=== PATIENT | female | born 1975 | race Caucasian/White ===

== ENCOUNTER → 2017-03-09 | Outpatient (CLI) | payer OTHER ==
--- NOTE | 2017-03-09 09:54 | REP ---
Clinical: Pain. Technique: AP, lateral, bilateral oblique views of the left foot. Findings: Examination is relatively normal for age. No overt osteoarthritic degenerative changes are appreciated. No acute fracture or dislocation. A prominent type II os naviculare is identified not to be confused with acute fracture. No significant soft tissue swelling. No subcutaneous emphysema or radiodense foreign body. Impression: Age-appropriate left foot radiographs. As above. Signed by Eren Beltran MD 03/09/2017 09:46 A
== END ==
LOC: M WUC 08:52
PROVIDERS: ATTEND Physician Assistant
DX: M79.672 Pain in left foot (principal)

== ENCOUNTER → 2017-03-26 | Outpatient (REF) | payer OTHER ==
[2017-03-26 17:40] LABS: CHLORIDE LEVEL 106 MEQ/L (98-107); POTASSIUM SERUM 4.8 MEQ/L (3.5-5.1); SODIUM LEVEL 140 MEQ/L (136-145)
[2017-03-26 18:12] LABS: ALKALINE PHOSPHATASE 86 U/L (45-117); ALT/SGPT 15 U/L (12-78); ANION GAP 5 MEQ/L (8-16); AST/SGOT 11 U/L (15-37); BLOOD UREA NITROGEN 8 MG/DL (7-18); CALCIUM LEVEL 8.3 MG/DL (8.5-10.1); CARBON DIOXIDE LEVEL 29 MEQ/L (21-32); GLOMERULAR FILTRATION RATE > 60.0 (>58); GLUCOSE, FASTING 91 MG/DL (70-105)
[2017-03-26 18:13] LABS: ALBUMIN 3.5 GM/DL (3.2-5.2); ALBUMIN/GLOBULIN RATIO 1.06 (1.00-1.93); BILIRUBIN,TOTAL 0.4 MG/DL (0.2-1.0); CHOLESTEROL LEVEL 186 MG/DL (<200); FREE T4 0.94 NG/DL (0.76-1.46); TOTAL PROTEIN 6.8 GM/DL (6.4-8.2); TRIGLYCERIDES LEVEL 148 MG/DL (<150)
[2017-03-26 18:31] LABS: BASO # 0.1 10^3/uL (0.0-0.2); BASO % 1.3 % (0.0-1.0); EOS # 0.1 10^3/uL (0.0-0.50); EOS % 2.1 % (0.0-3.0); IMMATURE GRANULOCYTE % 0.2 % (0-0); LYMPH # 1.6 10^3/uL (1.5-4.5); LYMPH % 31.5 % (24.0-44.0); MEAN CORPUSCULAR HEMOGLOBIN 24.3 pg (27.0-33.0); MEAN CORPUSCULAR HGB CONC 31.5 g/dl (32.0-36.5); MEAN CORPUSCULAR VOLUME 77.2 fl (80.0-96.0); MONO # 0.5 10^3/uL (0.0-0.8); MONO % 8.8 % (0.0-5.0); NEUTROPHILS # 2.9 10^3/uL (1.8-7.7); NEUTROPHILS % 56.1 % (36.0-66.0); PLATELET COUNT, AUTOMATED 198 10^3/uL (150-450); RED CELL DISTRIBUTION WIDTH 15.1 % (11.5-14.5); WHITE BLOOD COUNT 5.2 10^3/uL (4.0-10.0)
== END ==
LOC: M SFHCSACK 10:04
PROVIDERS: ATTEND Physician Assistant
DX: E78.5 Hyperlipidemia, unspecified (principal); F32.9 Major depressive disorder, single episode, unspecified; Z13.29 Encounter for screening for other suspected endocrine disorder; Z13.21 Encounter for screening for nutritional disorder

== ENCOUNTER → 2017-10-26 | Outpatient (REF) | payer OTHER ==
[2017-10-26 11:45] LABS: BASO # 0.1 10^3/uL (0.0-0.2); EOS # 0.2 10^3/uL (0.0-0.50); HEMATOCRIT 41.9 % (36.0-47.0); HEMOGLOBIN 13.6 g/dl (12.0-15.5); IMMATURE GRANULOCYTE % 0.1 % (0-3.0); LYMPH # 1.6 10^3/uL (1.5-4.5); LYMPH % 22.1 % (24.0-44.0); MEAN CORPUSCULAR HGB CONC 32.5 g/dl (32.0-36.5); MEAN CORPUSCULAR VOLUME 77.2 fl (80.0-96.0); MONO # 0.6 10^3/uL (0.0-0.8); MONO % 8.2 % (0.0-5.0); NEUTROPHILS # 4.9 10^3/uL (1.8-7.7); NEUTROPHILS % 66.6 % (36.0-66.0); PLATELET COUNT, AUTOMATED 184 10^3/uL (150-450); RED BLOOD COUNT 5.43 10^6/uL (4.00-5.40); RED CELL DISTRIBUTION WIDTH 14.8 % (11.5-14.5); WHITE BLOOD COUNT 7.4 10^3/uL (4.0-10.0)
[2017-10-26 12:07] LABS: TOTAL 25(OH) VITAMIN D 22.4 NG/ML (30.0-100.0)
[2017-10-26 12:13] LABS: ALBUMIN 3.6 GM/DL (3.2-5.2); ALBUMIN/GLOBULIN RATIO 1.16 (1.00-1.93); ALKALINE PHOSPHATASE 95 U/L (45-117); ALT/SGPT 14 U/L (12-78); ANION GAP 8 MEQ/L (8-16); AST/SGOT 13 U/L (7-37); BILIRUBIN,TOTAL 0.6 MG/DL (0.2-1.0); BLOOD UREA NITROGEN 9 MG/DL (7-18); CALCIUM LEVEL 8.3 MG/DL (8.5-10.1); CARBON DIOXIDE LEVEL 27 MEQ/L (21-32); CHLORIDE LEVEL 105 MEQ/L (98-107); CHOLESTEROL LEVEL 199 MG/DL (<200); CHOLESTEROL RISK RATIO 4.738 (<5); CREATININE FOR GFR 0.82 MG/DL (0.55-1.30); FREE T4 1.01 NG/DL (0.76-1.46); GLOMERULAR FILTRATION RATE > 60.0 (>58); GLUCOSE, FASTING 102 MG/DL (70-100); HDL CHOLESTEROL 42 MG/DL (>40); LDL CHOLESTEROL 116.4 MG/DL (<100); NON-HDL-C 157 MG/DL; POTASSIUM SERUM 4.1 MEQ/L (3.5-5.1); SODIUM LEVEL 140 MEQ/L (136-145); TOTAL PROTEIN 6.7 GM/DL (6.4-8.2); TRIGLYCERIDES LEVEL 203 MG/DL (<150)
== END ==
LOC: M SFHCPLAZ 08:27
DX: F32.9 Major depressive disorder, single episode, unspecified (principal); E78.5 Hyperlipidemia, unspecified; Z13.29 Encounter for screening for other suspected endocrine disorder; Z13.21 Encounter for screening for nutritional disorder
CPT/HCPCS: 84443

== ENCOUNTER → 2018-01-28 | Outpatient (REF) | payer OTHER ==
[2018-01-28 11:20] LABS: BASO # 0.1 10^3/uL (0.0-0.2); BASO % 1.1 % (0.0-1.0); EOS # 0.2 10^3/uL (0.0-0.50); EOS % 2.9 % (0.0-3.0); HEMATOCRIT 42.7 % (36.0-47.0); HEMOGLOBIN 13.8 g/dl (12.0-15.5); IMMATURE GRANULOCYTE % 0.2 % (0-3.0); LYMPH # 1.9 10^3/uL (1.5-4.5); LYMPH % 30.6 % (24.0-44.0); MEAN CORPUSCULAR HEMOGLOBIN 24.6 pg (27.0-33.0); MEAN CORPUSCULAR HGB CONC 32.3 g/dl (32.0-36.5); MEAN CORPUSCULAR VOLUME 76.3 fl (80.0-96.0); MONO # 0.6 10^3/uL (0.0-0.8); MONO % 8.8 % (0.0-5.0); NEUTROPHILS # 3.5 10^3/uL (1.8-7.7); NEUTROPHILS % 56.4 % (36.0-66.0); PLATELET COUNT, AUTOMATED 187 10^3/uL (150-450); RED CELL DISTRIBUTION WIDTH 14.9 % (11.5-14.5); WHITE BLOOD COUNT 6.2 10^3/uL (4.0-10.0)
[2018-01-28 11:37] LABS: ALBUMIN 3.4 GM/DL (3.2-5.2); ALBUMIN/GLOBULIN RATIO 1.06 (1.00-1.93); ALKALINE PHOSPHATASE 86 U/L (45-117); ALT/SGPT 12 U/L (12-78); ANION GAP 4 MEQ/L (8-16); AST/SGOT 8 U/L (7-37); BILIRUBIN,TOTAL 0.5 MG/DL (0.2-1.0); BLOOD UREA NITROGEN 12 MG/DL (7-18); CALCIUM LEVEL 8.3 MG/DL (8.5-10.1); CARBON DIOXIDE LEVEL 29 MEQ/L (21-32); CHLORIDE LEVEL 107 MEQ/L (98-107); CREATININE FOR GFR 0.84 MG/DL (0.55-1.30); GLOMERULAR FILTRATION RATE > 60.0 (>58); GLUCOSE, FASTING 95 MG/DL (70-100); POTASSIUM SERUM 4.1 MEQ/L (3.5-5.1); SODIUM LEVEL 140 MEQ/L (136-145); TOTAL PROTEIN 6.6 GM/DL (6.4-8.2)
[2018-01-28 12:05] LABS: ESTIMATED AVERAGE GLUCOSE 111 MG/DL (60-110); HEMOGLOBIN A1c 5.5 %
== END ==
LOC: M SFHCSACK 08:30
DX: E55.9 Vitamin D deficiency, unspecified (principal); R73.09 Other abnormal glucose
CPT/HCPCS: 80053

== ENCOUNTER → 2018-09-02 | Outpatient (REF) | payer OTHER ==
[2018-09-02 15:10] LABS: BASO # 0.1 10^3/uL (0.0-0.2); BASO % 1.3 % (0.0-1.0); EOS # 0.1 10^3/uL (0.0-0.50); EOS % 2.5 % (0.0-3.0); HEMATOCRIT 42.8 % (36.0-47.0); LYMPH # 1.4 10^3/uL (1.5-4.5); LYMPH % 25.5 % (24.0-44.0); MEAN CORPUSCULAR HEMOGLOBIN 25.4 pg (27.0-33.0); MEAN CORPUSCULAR HGB CONC 32.7 g/dl (32.0-36.5); MEAN CORPUSCULAR VOLUME 77.5 fl (80.0-96.0); MONO # 0.5 10^3/uL (0.0-0.8); MONO % 9.4 % (0.0-5.0); NEUTROPHILS # 3.4 10^3/uL (1.8-7.7); NEUTROPHILS % 61.1 % (36.0-66.0); PLATELET COUNT, AUTOMATED 207 10^3/uL (150-450); RED BLOOD COUNT 5.52 10^6/uL (4.00-5.40); WHITE BLOOD COUNT 5.5 10^3/uL (4.0-10.0)
[2018-09-02 15:27] LABS: ALBUMIN 3.6 GM/DL (3.2-5.2); ALT/SGPT 18 U/L (12-78); BILIRUBIN,TOTAL 0.5 MG/DL (0.2-1.0); BLOOD UREA NITROGEN 11 MG/DL (7-18); CALCIUM LEVEL 8.7 MG/DL (8.5-10.1); CARBON DIOXIDE LEVEL 30 MEQ/L (21-32); CHLORIDE LEVEL 104 MEQ/L (98-107); CHOLESTEROL LEVEL 214 MG/DL (<200); CHOLESTEROL RISK RATIO 4.196 (<5); CREATININE FOR GFR 0.74 MG/DL (0.55-1.30); FERRITIN 14 NG/ML (8-252); FREE T4 1.02 NG/DL (0.76-1.46); GLOMERULAR FILTRATION RATE > 60.0 (>58); GLUCOSE, FASTING 91 MG/DL (70-100); HDL CHOLESTEROL 51 MG/DL (>40); IRON (FE) 69 UG/DL (50-170); LDL CHOLESTEROL 130 MG/DL (<100); NON-HDL-C 163 MG/DL; POTASSIUM SERUM 4.5 MEQ/L (3.5-5.1); SODIUM LEVEL 140 MEQ/L (136-145); TOTAL 25(OH) VITAMIN D 21.8 NG/ML (30.0-100.0); TOTAL IRON BINDING CAPACITY 287 UG/DL (250-450); TOTAL PROTEIN 6.9 GM/DL (6.4-8.2); TRIGLYCERIDES LEVEL 165 MG/DL (<150)
[2018-09-02 15:44] LABS: HEMOGLOBIN A1c 5.7 %
== END ==
LOC: M SFHCSACK 08:05
PROVIDERS: ATTEND Physician Assistant
DX: D64.9 Anemia, unspecified (principal); E78.5 Hyperlipidemia, unspecified; F32.9 Major depressive disorder, single episode, unspecified; R73.09 Other abnormal glucose; E55.9 Vitamin D deficiency, unspecified

== ENCOUNTER → 2018-10-25 | Outpatient (CLI) | payer OTHER ==
--- NOTE | 2018-10-25 12:03 | REPMRS ---
Patient History The patient states she had a clinical breast exam in 10/2018. No known family history of cancer. No Hormone Replacement Therapy Digital Woman Screen Mammo: October 25, 2018 - Exam #: [id number] Bilateral CC and MLO view(s) were taken. Technologist: Suzette Moise, Technologist Prior study comparison: March 04, 2015, bilateral digital mammo screening bilat, performed at [facility]. FINDINGS: The breast tissue is heterogeneously dense. This may lower the sensitivity of mammography. There has been no change in the appearance of the mammogram from the prior studies. There is a moderate amount of residual fibroglandular tissue which is fairly symmetric. There is no interval development of dominant mass, areas of architectural distortion, or clustered microcalcification typical of malignancy. Assessment: BI-RADS/ACR category 1 mammogram. Negative Mammogram. Recommendation Routine screening mammogram in 1 year (for women over age 40). This mammogram was interpreted with the aid of an FDA-approved computer-aided dectection system. Electronically Signed By: Kyle Calderon MD 10/25/18 7901
== END ==
LOC: M WHC 09:16
PROVIDERS: ATTEND Nurse Practitioner Women's Health
DX: Z12.31 Encounter for screening mammogram for malignant neoplasm of breast (principal)
CPT/HCPCS: 77067; G0123; G0463

== ENCOUNTER → 2018-10-25 | Outpatient (REF) | payer OTHER ==
[2018-10-30 14:11] LABS: HPV HYBRID CAPTURE II Negative (Negative)
== END ==
LOC: M SFHCWAGY 09:25
PROVIDERS: ATTEND Nurse Practitioner Women's Health
DX: Z12.4 Encounter for screening for malignant neoplasm of cervix (principal); Z11.51 Encounter for screening for human papillomavirus (HPV)

== ENCOUNTER → 2019-02-19 | Outpatient (REF) | payer OTHER ==
[2019-02-19 14:13] LABS: BASO # 0.1 10^3/uL (0.0-0.2); BASO % 1.3 % (0.0-1.0); EOS # 0.2 10^3/uL (0.0-0.50); EOS % 2.4 % (0.0-3.0); HEMATOCRIT 41.7 % (36.0-47.0); HEMOGLOBIN 13.5 g/dl (12.0-15.5); LYMPH # 1.6 10^3/uL (1.5-4.5); LYMPH % 22.5 % (24.0-44.0); MEAN CORPUSCULAR HEMOGLOBIN 24.9 pg (27.0-33.0); MEAN CORPUSCULAR HGB CONC 32.4 g/dl (32.0-36.5); MEAN CORPUSCULAR VOLUME 76.9 fl (80.0-96.0); MONO # 0.6 10^3/uL (0.0-0.8); MONO % 8.5 % (0.0-5.0); NEUTROPHILS # 4.5 10^3/uL (1.8-7.7); NEUTROPHILS % 65.2 % (36.0-66.0); PLATELET COUNT, AUTOMATED 233 10^3/uL (150-450); RED BLOOD COUNT 5.42 10^6/uL (4.00-5.40); WHITE BLOOD COUNT 6.9 10^3/uL (4.0-10.0)
[2019-02-19 14:17] LABS: ALBUMIN 3.2 GM/DL (3.2-5.2); ALT/SGPT 12 U/L (12-78); BILIRUBIN,TOTAL 0.5 MG/DL (0.2-1.0); BLOOD UREA NITROGEN 7 MG/DL (7-18); CALCIUM LEVEL 8.3 MG/DL (8.5-10.1); CARBON DIOXIDE LEVEL 27 MEQ/L (21-32); CHLORIDE LEVEL 108 MEQ/L (98-107); CHOLESTEROL LEVEL 212 MG/DL (<200); GLOMERULAR FILTRATION RATE > 60.0 (>58); GLUCOSE, FASTING 92 MG/DL (70-100); HDL CHOLESTEROL 41 MG/DL (>40); LDL CHOLESTEROL 139 MG/DL (<100); NON-HDL-C 171 MG/DL; POTASSIUM SERUM 3.8 MEQ/L (3.5-5.1); SODIUM LEVEL 138 MEQ/L (136-145); TOTAL PROTEIN 6.3 GM/DL (6.4-8.2); TRIGLYCERIDES LEVEL 159 MG/DL (<150)
[2019-02-19 14:25] LABS: TOTAL 25(OH) VITAMIN D 40.9 NG/ML (30.0-100.0)
== END ==
LOC: M SFHCSACK 08:26
PROVIDERS: ATTEND Physician Assistant
DX: E78.5 Hyperlipidemia, unspecified (principal); E55.9 Vitamin D deficiency, unspecified
CPT/HCPCS: 36415; 80053; 80061; 82306; 85025; G0463

== ENCOUNTER → 2019-03-05 | Outpatient (REF) | payer OTHER | LOC: M SFHCSACK 14:35 | PROVIDERS: ATTEND Physician Assistant | DX: R30.0 Dysuria (principal) | CPT/HCPCS: 81002; 87086; G0463 ==

== ENCOUNTER → 2019-08-14 | Outpatient (CLI) | payer OTHER ==
[2019-08-14 12:27] LABS: BASO # 0.1 10^3/uL (0.0-0.2); BASO % 1.5 % (0.0-1.0); EOS # 0.1 10^3/uL (0.0-0.5); EOS % 2.1 % (0.0-3.0); HEMATOCRIT 45.5 % (36.0-47.0); HEMOGLOBIN 14.2 g/dl (12.0-15.5); LYMPH % 29.6 % (24.0-44.0); MEAN CORPUSCULAR HEMOGLOBIN 24.5 pg (27.0-33.0); MEAN CORPUSCULAR HGB CONC 31.2 g/dl (32.0-36.5); MEAN CORPUSCULAR VOLUME 78.6 fl (80.0-96.0); MONO # 0.6 10^3/uL (0.0-0.8); MONO % 9.7 % (0.0-5.0); NEUTROPHILS # 3.7 10^3/uL (1.5-8.5); NEUTROPHILS % 56.8 % (36.0-66.0); PLATELET COUNT, AUTOMATED 211 10^3/uL (150-450); RED BLOOD COUNT 5.79 10^6/uL (4.00-5.40); WHITE BLOOD COUNT 6.6 10^3/uL (4.0-10.0)
[2019-08-14 12:52] LABS: ALBUMIN 3.6 GM/DL (3.2-5.2); ALT/SGPT 17 U/L (12-78); BILIRUBIN,TOTAL 0.4 MG/DL (0.2-1.0); BLOOD UREA NITROGEN 12 MG/DL (7-18); CALCIUM LEVEL 8.7 MG/DL (8.5-10.1); CARBON DIOXIDE LEVEL 30 MEQ/L (21-32); CHLORIDE LEVEL 105 MEQ/L (98-107); CHOLESTEROL LEVEL 180 MG/DL (<200); CHOLESTEROL RISK RATIO 4.186 (<5); CREATININE FOR GFR 0.88 MG/DL (0.55-1.30); GLOMERULAR FILTRATION RATE > 60.0 (>58); GLUCOSE, FASTING 103 MG/DL (70-100); HDL CHOLESTEROL 43 MG/DL (>40); LDL CHOLESTEROL 108 MG/DL (<100); NON-HDL-C 137 MG/DL; POTASSIUM SERUM 4.2 MEQ/L (3.5-5.1); SODIUM LEVEL 138 MEQ/L (136-145); TOTAL 25(OH) VITAMIN D 40.4 NG/ML (30.0-100.0); TOTAL PROTEIN 6.8 GM/DL (6.4-8.2); TRIGLYCERIDES LEVEL 146 MG/DL (<150)
== END ==
LOC: M PLALAB 08:47
PROVIDERS: ATTEND Physician Assistant
DX: E78.5 Hyperlipidemia, unspecified (principal); E55.9 Vitamin D deficiency, unspecified; F32.9 Major depressive disorder, single episode, unspecified

== ENCOUNTER → 2020-02-06 | Outpatient (CLI) | payer OTHER ==
--- NOTE | 2020-03-19 08:41 | REP ---
RIGHT CLAVICLE SERIES HISTORY: Lump over right sternoclavicular joint. TECHNIQUE: Two views of the right clavicle are performed. FINDINGS: There is no acute fracture or dislocation. Osseous structures are well aligned. No definite abnormalities are seen at the sternoclavicular or acromioclavicular joints. IMPRESSION: Unremarkable radiographs right clavicle. MTDD
== END ==
LOC: M RAD 09:15
PROVIDERS: ATTEND Plastic Surgery Surgery of the Hand
DX: R22.31 Localized swelling, mass and lump, right upper limb (principal)

== ENCOUNTER → 2020-02-12 | Outpatient (CLI) | payer OTHER ==
[~2020-02-12] MED LIST: GASTROGRAFIN SOLUTION 30ML (Q9963) As Ordered ONE; ISOVUE-370 76% 100ML VIAL As Ordered ONE
--- NOTE | 2020-03-19 08:42 | REP ---
CT ABDOMEN AND PELVIS WITHOUT CONTRAST FOLLOWED BY WITH CONTRAST COMPARISON: There are no prior examinations for comparison. CONTRAST UTILIZED: 100 mL Isovue-370. Oral bowel preparatory contrast was also administered prior to the exam. In the right lung base, there is a 6-mm sized nodule. There are no pleural or pericardial effusions. The precontrast enhanced portion of the exam shows hepatic and splenic densities to be within normal limits. There is no nephrolith or cholelith. There is no proximal ureterolith. The contrast enhanced portion of the exam shows the liver, gallbladder, spleen, adrenal glands, pancreas, and kidneys to be within normal limits. The abdominal aorta and paraaortic regions are within normal limits. The bowel loops and their mesenteries are within normal limits. There is no evidence of a mass or adenopathy. There is no free fluid or free air. At the level of the umbilicus along the anterior abdominal wall, there is slight irregularity and discontinuity of the abdominal wall at that level with mm in size openings and through which a small amount of mesentery protrudes. Bone window technique throughout the exam shows spinal degenerative changes. IMPRESSION: * There is evidence of tiny rents along the anterior abdominal wall at the level of the umbilicus as described above. * There is a nodule in the right lung lower lobe measuring 6-mm. According to the revised Fleischner Society Criteria, diagnostic CT scan of chest with contrast is recommended for the initial follow-up exam. * Other findings as described above. MTDD
== END ==
LOC: M RAD 12:28
PROVIDERS: ATTEND Plastic Surgery Surgery of the Hand
DX: M54.07 Panniculitis affecting regions of neck and back, lumbosacral region (principal); K42.9 Umbilical hernia without obstruction or gangrene; R91.1 Solitary pulmonary nodule
CPT/HCPCS: 74178; Q9963; Q9967

== ENCOUNTER → 2020-03-25 | Outpatient (CLI) | payer OTHER ==
[~2020-03-25] MED LIST changes: -GASTROGRAFIN SOLUTION 30ML (Q9963) As Ordered ONE
--- NOTE | 2020-03-31 10:23 | REP ---
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 COMPARISON: CT study abdomen 02/12/2020, showed a small nodule incompletely visualized in the right lower lobe of the lung. CT study recommended for further evaluation. No comparison chest CT. CT CONTRAST DOSE: 75 mL of intravenous Isovue-370. CT FINDINGS: Digital preliminary lean manufacturing engineer radiograph is unremarkable. Lung window settings confirm the presence of a 6-mm pleural-based nodule in the posterior aspect of the right lower lobe, as seen on the recent CT abdomen. No other pulmonary nodule is appreciated. The lung lindsey are otherwise clear. No hilar or mediastinal mass or adenopathy is seen. No pleural or pericardial effusion. The adrenal glands are normal. There is minimal diffuse fatty infiltration of the liver. No extrathoracic mass or adenopathy is appreciated. No bony destructive lesion seen. IMPRESSION: A 6-mm noncalcified pulmonary nodule right lower lobe noted posteriorly as seen on the abdomen CT study done 02/12/2020. If this patient is considered to have risk factors for lung malignancy, a six month follow-up chest CT study should be considered to document stability over time. Lung-RADS Category 3 finding. MTDD
== END ==
LOC: M RAD 09:31
PROVIDERS: ATTEND Plastic Surgery Surgery of the Hand
DX: D38.6 Neoplasm of uncertain behavior of respiratory organ, unspecified (principal); R91.1 Solitary pulmonary nodule
CPT/HCPCS: 71260; Q9967

== ENCOUNTER → 2020-07-26 | Outpatient (CLI) | payer OTHER ==
[~2020-07-26] MED LIST changes: +ADDE20CA3 PO; +CHAN1PAK13 PO; -ISOVUE-370 76% 100ML VIAL As Ordered ONE; +SIMV20TA22 PO
[2020-07-26 10:14] LABS: BASO # 0.1 10^3/uL (0.0-0.2); BASO % 1.1 % (0.0-1.0); EOS # 0.2 10^3/uL (0.0-0.5); EOS % 2.5 % (0.0-3.0); HEMATOCRIT 44.5 % (36.0-47.0); HEMOGLOBIN 14.3 g/dl (12.0-15.5); LYMPH # 1.9 10^3/uL (1.5-5.0); LYMPH % 26.4 % (24.0-44.0); MEAN CORPUSCULAR HEMOGLOBIN 25.2 pg (27.0-33.0); MEAN CORPUSCULAR HGB CONC 32.1 g/dl (32.0-36.5); MEAN CORPUSCULAR VOLUME 78.5 fl (80.0-96.0); MONO # 0.6 10^3/uL (0.0-0.8); MONO % 8.1 % (0.0-5.0); NEUTROPHILS # 4.4 10^3/uL (1.5-8.5); NEUTROPHILS % 61.8 % (36.0-66.0); PLATELET COUNT, AUTOMATED 222 10^3/uL (150-450); RED BLOOD COUNT 5.67 10^6/uL (4.00-5.40); WHITE BLOOD COUNT 7.2 10^3/uL (4.0-10.0)
[2020-07-26 10:41] LABS: ALBUMIN 3.5 GM/DL (3.2-5.2); ALT/SGPT 17 U/L (12-78); BILIRUBIN,TOTAL 0.6 MG/DL (0.2-1.0); BLOOD UREA NITROGEN 12 MG/DL (7-18); CALCIUM LEVEL 8.6 MG/DL (8.5-10.1); CARBON DIOXIDE LEVEL 28 MEQ/L (21-32); CHLORIDE LEVEL 104 MEQ/L (98-107); CREATININE FOR GFR 0.75 MG/DL (0.55-1.30); GLOMERULAR FILTRATION RATE > 60.0 (>58); GLUCOSE, FASTING 100 MG/DL (70-100); POTASSIUM SERUM 4.1 MEQ/L (3.5-5.1); SODIUM LEVEL 138 MEQ/L (136-145); TOTAL PROTEIN 6.6 GM/DL (6.4-8.2)
[2020-07-26 11:29] LABS: HEMOGLOBIN A1c 5.5 %
== END ==
LOC: M WUC 08:15
PROVIDERS: ATTEND Physician Assistant
DX: Z01.818 Encounter for other preprocedural examination (principal)

== ENCOUNTER → 2020-07-29 | Outpatient (CLI) | payer OTHER | LOC: M LABSMTC 14:11 | PROVIDERS: ATTEND Anesthesiology | DX: Z01.812 Encounter for preprocedural laboratory examination (principal); Z20.822 Contact with and (suspected) exposure to COVID-19 ==

== ENCOUNTER 2020-08-03 06:18 | Observation (INO) | payer OTHER, SELFPAY ==
[~2020-08-03] VITALS: Ht 167.6 cm; Wt 84.1 kg
[2020-08-03] VITALS (7 sets, daily range): BP systolic 126–143; BP diastolic 76–83
[2020-08-03] MEDS ORDERED: BACITRACIN PWD 50,000 UNITS VIAL As Ordered ONE (07:13)
[2020-08-03] MEDS ORDERED: BUPIVACAINE LIPOSOME/PF 1.3% 20ML VIAL (13.3MG/ML)(EXPAREL)(C9290 PER1MG) As Ordered ONE (07:13)
[2020-08-03] MEDS ORDERED: ceFAZolin SOD 2 GM in IV 1 EA IV ONE (07:15)
[2020-08-03] MEDS ORDERED: HEPARIN SOD (PORCINE) 5000UNITS/ML 1ML VIAL/SYRINGE SQ ONE (07:15)
[2020-08-03] MEDS ORDERED: fentaNYL 100 MCG/2 ML INJECTION (J3010) As Ordered ONE (07:18)
[2020-08-03] MEDS ORDERED: LIDOCAINE 2% 100MG/5ML SDV (FOR ANES.) As Ordered ONE (07:18)
[2020-08-03] MEDS ORDERED: propofoL 200 MG/20 ML VIAL As Ordered ONE (07:18)
[2020-08-03] MEDS ORDERED: ONDANSETRON 4MG/2ML VIAL As Ordered ONE (07:18)
[2020-08-03] MEDS ORDERED: METOCLOPRAMIDE INJ 10MG/2ML VIAL (J2765 PER 1) As Ordered ONE (07:18)
[2020-08-03] MEDS ORDERED: MIDAZOLAM INJ 2MG/2ML VIAL (J2250 PER 1MG) As Ordered ONE (07:19)
[2020-08-03] MEDS ORDERED: ROCURONIUM BROMIDE 50 MG/5 ML VIAL As Ordered ONE (07:21)
[2020-08-03] MEDS ORDERED: HYDROmorphone HCL 2 MG/ML 1ML VIAL (J1170) As Ordered ONE (08:13)
[2020-08-03] MEDS ORDERED: THROMBIN SOLN 20,000 UNITS KIT As Ordered ONE (08:50)
[2020-08-03] MEDS ORDERED: dexameTHASONE 4 MG/ML 1ML VIAL (J1100 PER 1MG) As Ordered ONE (10:40)
[2020-08-03] MEDS ORDERED: ACETAMINOPHEN 1000MG 100ML IV BTL (OFIRMEV) (J0131 PER 10MG) As Ordered ONE (10:40)
[2020-08-03] MEDS ORDERED: LABETALOL 100MG/20ML VIAL As Ordered ONE (10:40)
[2020-08-03] MEDS ORDERED: MORPHINE 10 MG/ML 1ML VIAL (J2270) As Ordered ONE (10:54)
[2020-08-03] MEDS: MORPHINE 2 MG/ML 1ML VIAL (J2270) IV PRN ×3 (10:57→11:22)
--- NOTE | 2020-08-03 11:21 | POST-OPPD ---
Postoperative Procedure Note Date Of Procedure: Aug 03, 2020 PREOPERATIVE DIAGNOSIS: Panniculitis, rectus muscle diathesis. POSTOPERATIVE DIAGNOSIS: same FINDINGS: Small umbilical defect with fat protrusion, large pannus. PROCEDURE: Extended panniculectomy with rectus muscle plication. SURGEON: Dr Jean GAUGE OPERATOR: Dr Ware ANESTHESIA: general SPECIMENS: Pannus 1364 g ESTIMATED BLOOD LOSS: 50cc REPLACED: none DRAINS: 10 mm LIZ x 2 COMPLICATIONS: none POSTOPERATIVE CONDITION: stable SHIRLEY JEAN DO Aug 03, 2020 11:21
[2020-08-03] MEDS ORDERED: LR 1,000 ML IV SCH (11:30)
[2020-08-03] MEDS ORDERED: METOCLOPRAMIDE INJ 10MG/2ML VIAL (J2765 PER 1) IV PRN (11:30)
[2020-08-03] MEDS ORDERED: ONDANSETRON 4MG/2ML VIAL IV PRN ×2 (11:30)
[2020-08-03] MEDS ORDERED: ACETAMINOPHEN TAB 650MG DOSE (2X325MG) PO PRN (11:30)
[2020-08-03] MEDS ORDERED: fentaNYL 100 MCG/2 ML INJECTION (J3010) IV PRN (11:30)
[2020-08-03] MEDS: PERCOCET 5MG/325MG TAB PO PRN ×4 (11:37→23:41)
--- NOTE | 2020-08-03 12:33 | ROOPDOC ---
[facility] Report Of Operation Report of Operation Date Of Procedure: Aug 03, 2020 PREOPERATIVE DIAGNOSIS: Panniculitis, rectus muscle diathesis. POSTOPERATIVE DIAGNOSIS: same FINDINGS: Small umbilical defect with fat protrusion, large pannus. PROCEDURE: Extended panniculectomy with rectus muscle plication. SURGEON: Dr Jean FANCY PACKER: Dr Ware ANESTHESIA: general SPECIMENS: Pannus 1364 gm ESTIMATED BLOOD LOSS: 50cc REPLACED: none DRAINS: 10 mm LIZ x 2 COMPLICATIONS: none POSTOPERATIVE CONDITION: stable Procedure: This is a 44-year-old female status post significant weight loss. Patient has excessive pannus above and mostly below the umbilicus with large mons pubis ptosis. There is a fatty bulge on the left side of the umbilicus as well. CT scan did not confirm hernia however comment on a fatty bulge. Patient is scheduled for extended panniculectomy. Risks benefits and alternatives discussed with the patient in details. Informed consent confirmed and preoperative holding area. Patient was marked in upright position. She was brought into the operating room, placed in supine position, preoperative antibiotics given, sequential stockings placed in the lower calves, and then general anesthesia is induced. 5000 units heparin given subcutaneously. Fully introduced in the bladder without any difficulties with yellow clear urine present. She was prepped and draped in the usual sterile fashion. Lower abdominal incision was designed 7 cm above the labial crease. Incision car ried out with 10 blade. Careful sharp dissection with electrocautery and peek cautery was done until the fascia of rectus muscle is identified. Vessels were identified throughout and either cauterized or suture ligated for hemostasis control. Significant scarring was encountered at the lower mid abdominal area status post total abdominal hysterectomy surgery. Fascia completely intact. Infraumbilical flap was divided in the middle to aid the dissection. We continued our dissection until umbilicus was encountered. Rhomboid incision made around the umbilicus and dissection continued until xiphoid process area. Umbilicus was reexamined and a fatty bulge 2 cm identified. It was carefully dissected to the fascia and 0.5 cm opening was identified. The fat was dissected and ligated. The small defect in fascia repaired with interrupted 2-0 Prolene figure of 8 sutures. No abdominal contents were encountered. Edges of fascia completely clear. Significant diathesis of rectus muscles was identified, it is 8 cm at midline. Rectus muscle plication was carried out with interrupted 0 Vicryl sutures followed by running interlocking stitch with #1 PDS. Patient placed in the reflex position and excess tissue was measured and scored. Then pannus consisting of skin and subcutaneous tissue was resected using electrocautery. Total weight of the pannus 1364 g. Careful hemostasis was assured. The wound is irrigated bacitracin irrigation. Skin flaps were realigned and was started all closure with deep sutures of 0 Vicryl realigning the mons pubis and closing the lower abdominal incision. 3 mL Monocryl V lock suture used for subcutaneous closure followed by 3-0 Monocryl interrupted sutures as well. To 10 mm Jona-Rosario drains were placed throughout lower abdominal incision. New opening was created for the umbilical stump using electrocautery. The umbilicus was brought into view and sutured in place with interrupted 3-Monocryl sutures and 5-0 plain gut sutures in the running fashion. Prinio dressing applied to lower abdominal incision, Xeroform to umbilicus, and bulky dressing throughout. Abdominal binder applied. Patient extubated in the operating room without any difficulties and transferred to recovery room in stable condition. SHIRLEY JEAN DO Aug 03, 2020 12:33
[2020-08-03] MEDS: LR 1,000 ML IV SCH ×2 (12:50→23:40)
[2020-08-03] MEDS: ceFAZolin SOD 1 GM in D5W MINI-BAG PLUS 50 ML IV SCH ×2 (16:24→23:40)
[2020-08-03] MEDS: MORPHINE 4 MG/ML 1ML VIAL/SYRINGE (J2270) IV PRN ×2 (16:24→21:24)
[2020-08-03] MEDS ORDERED: MAALOX 30 ML SUSP *UDC PO PRN (18:45)
[2020-08-04 02:00] VITALS: BP 116/82
[2020-08-04] MEDS: PERCOCET 5MG/325MG TAB PO PRN ×3 (04:11→12:35)
[2020-08-04 06:00] VITALS: BP 125/85
[2020-08-04] MEDS: ceFAZolin SOD 1 GM in D5W MINI-BAG PLUS 50 ML IV SCH (08:18)
--- NOTE | 2020-08-04 09:28 | IPNPDOC ---
Subjective General Date Seen: Aug 04, 2020 Subject Chief Complaint/History The patient is a 44-year-old female admitted with a reason for visit of Panniculitis. Patient status post abdominoplasty postop day 1. She is feeling well today pain, controlled with Percocet. She is ambulating, tolerating regular diet. Current Medications Current Medications Current Medications Medications (Trade) Dose Ordered Sig/Colleen Route PRN Reason Start Time Stop Time Status Last Admin Dose Admin Acetaminophen (Tylenol Tab) 650 mg Q6H PRN PO MILD PAIN (PS 1-4) 08/03/20 11:30 Al Hydrox/Mg Hydrox/Simethicone (Mylanta) 30 ml Q4HP PRN PO HEARTBURN 08/03/20 18:45 08/03/20 18:57 Cefazolin Sodium 1 gm/Dextrose 50 ml @ 100 mls/hr Q8H IV 08/03/20 16:00 08/04/20 08:18 Fentanyl Citrate (Sublimaze) 25 mcg Q5MP PRN IV PAIN LEVEL 5-10 08/03/20 11:30 08/03/20 12:30 DC Lactated Ringer's 1,000 ml @ 75 mls/hr [id number] IV 08/03/20 11:21 08/03/20 23:40 Lactated Ringer's 1,000 ml @ 100 mls/hr Q10H IV 08/03/20 11:30 08/03/20 12:30 DC Metoclopramide HCl (REGLAN INJection) 10 mg Q6HP PRN IV NAUSEA OR VOMITING 08/03/20 11:30 08/03/20 12:30 DC Morphine Sulfate (Morphine Sulfate Inj) 3 mg Q5MP PRN IV PAIN LEVEL 4-7 08/03/20 11:30 08/03/20 12:30 DC 08/03/20 11:22 Morphine Sulfate (Morphine Sulfate Inj) 4 mg Q4HP PRN IV SEVERE PAIN (PS 8-10) 08/03/20 11:30 08/03/20 21:24 Ondansetron HCl (ZOFRAN INJection) 4 mg Q4H PRN IV NAUSEA OR VOMITING 08/03/20 11:30 Ondansetron HCl (ZOFRAN INJection) 4 mg Q4HP PRN IV NAUSEA OR VOMITING 08/03/20 11:30 08/03/20 12:30 DC Oxycodone/ Acetaminophen (Percocet 5mg/ 325mg Tablet) 1 tab ASDIRECTED PRN PO PAIN LEVEL 1-4 08/03/20 11:30 08/03/20 12:29 DC 08/03/20 12:29 Oxycodone/ Acetaminophen (Percocet 5mg/ 325mg Tablet) 1 tab Q4HP PRN PO PAIN LEVEL 4-7 08/03/20 11:30 08/04/20 08:21 Allergies Coded Allergies: No Known Allergies (Verified , 07/27/20) Objective Physical Examination Examination GENERAL APPEARANCE:Patient seen, laying in bed, awake, alert, and oriented. Comfortable, in no acute distress. SKIN: Warm and moist. LUNGS: Clear to auscultation bilaterally. No wheezing appreciated. HEART: No chest wall abnormalities. Regular rate and rhythm with no murmurs appreciated. ABDOMEN: Abdomen is soft, non-tender, non-distended. Incision intact. Umbilicus viable. LIZ drains with serosanguinous drainage. 20/40 cc/24hr each drain. EXTREMITIES: No calf tenderness.. Vital Signs Vital Signs Date Time Temp Pulse Resp B/P (MAP) Pulse Ox O2 Delivery O2 Flow Rate FiO2 08/04/20 08:51 16 08/04/20 06:00 97.0 83 125/85 (98) 90 Room Air 08/03/20 13:00 1.0 I&Os I&O- Last 24 Hours up to 6 AM 08/04/20 05:59 Intake Total 2260 ml Output Total 860 ml Balance 1400 ml Impression Status post abdominoplasty postop day 1. Stable for discharge. Dressings changed today. Continue monitoring drains at home. Abdominal binder at all times. Percocet prescription for pain. Follow-up plastic surgery Plan / VTE VTE Prophylaxis Ordered?: Yes SHIRLEY JEAN DO Aug 04, 2020 09:28
[2020-08-04] MEDS ORDERED: PERCOCET PO (09:35)
[2020-08-04 10:04] VITALS: BP 131/85
--- OUTSIDE RECORDS SUMMARY | 2020-08-13 13:56 | CCD | Continuity of Care Document ---
Author Author Padmini JEAN DO Organization Unknown Address [address] [place] [address] Phone [phone] Care Team Providers Care Assembly Line Inspector Name Role Phone Kinga Perera AUTM [phone] Lilliana Villagran D.O. AUTM [phone] Problems Description No Active Problems Social History Type Date Description Comments Sex Female ETOH Use Occasionally consumes alcohol Tobacco Use Start: Unknown Smokes 1 Pack A Day Recreational Drug Use Denies Drug Use Smoking Status Reviewed: 08/01/19 Smokes 1 Pack A Day Allergies, Adverse Reactions, Alerts Active Allergies Reaction Severity Comments Date NKDA 01/07/2016 No Known Drug Allgy 01/25/20 07 Medications Active Medications SIG Qnty Indications Ordering Provide r Date Adderall XR 20mg Caps ER 24HR daily Unknown Adderall 10mg Tablets take 1 tab by mouth twice per day Unknown Simvastatin 20mg Tablets Unknown Immunizations Description No Information Available Vital Signs Date Vital Result Comment 07/19/2020 2:58pm BP Systolic 144 mmHg BP Diastolic 78 mmHg Heart Rate 80 /min Respiratory Rate 16 /min Body Temperature 97.1 F Height 66 inches 5'6" Weight 184.00 lb BMI (Body Mass Index) 29.7 kg/m2 [place] Body Weight 130 lb Weight 83.462 kg BSA (Body Surface Area) 1.93 m2 02/04/2020 9:09am BP Systolic 151 mmHg BP Diastolic 85 mmHg Heart Rate 68 /min Body Temperature 97.8 F Height 66 inches 5'6" Weight 177.25 lb BMI (Body Mass Index) 28.6 kg/m2 [place] Body Weight 130 lb Weight 80.401 kg BSA (Body Surface Area) 1.90 m2 Results Test Acquired Date Facility Test Result H/L Range Note Laboratory test finding 08/03/2020 [facility] [address] [place] [address] [phone] Pathology Request For Service (SEE NOTE) 1 1 FINAL DIAGNOSIS Abdominal wall, extended panniculectomy: Pannus. 08/04/2020 - 1203 CLINICAL DIAGNOSIS Panniculitis 08/03/2020 - 1452 GROSS DIAGNOSIS Received in formalin labeled "pannus, 1364 grams" are two portions of skin and subcutaneous tissue, approximately 22 x 15 x 5 cm each, as well as a few additional fragments (1364 grams per OR report). Sectioning does not reveal any gross lesion. Fire Watcher in one. A few additional fragments of fat and focal skin are also noted in the container, 4 x 2 x 2 cm. - 08/03/2020 - 145 Signed Natasha Vasquez MD 08/04/2020 1348 Procedures Date Code Description Status 08/03/2020 13064 Excision Tumor Abdominal Wall Morse bfascial Completed 08/03/2020 04588 Excision Excessive Skin Subcutan eous Tissue Abdominoplasty Completed 08/03/2020 17570 Excision Excessive Skin And Subc utaneous Tissue Abdomen Completed 06/22/2020 81977 Abdominalplasty Cosmetic Complet ed 06/22/2020 001C Cosmetic Facility Fee Completed 06/22/2020 0011c [facility] Fee Completed Medical Devices Description No Information Available Encounters Type Date Location Provider Dx Diagnosis Office Visit 03/17/2020 9:00a [facility] Plastic Surgery Iraida Jean, M54.07 Panniculitis affecting regions of neck/bk, lumbosacr region Assessments Date Code Description Provider 08/09/2020 M79.3 Panniculitis, unspecified Iraida Greg, DO 08/09/2020 L98.7 Excessive and redundant skin and subcutaneous tissue Iraida Greg, DO 08/09/2020 M62.08 Separation of muscle (nontraumat ic), other site Iraida Greg, DO 08/03/2020 M79.3 Panniculitis, unspecified Iraida Greg, DO 08/03/2020 L98.7 Excessive and redundant skin and subcutaneous tissue Iraida Greg, DO 08/03/2020 M62.08 Separation of muscle (nontraumat ic), other site Iraida Greg, DO 08/03/2020 D21.4 Benign neoplasm of connective an d other soft tissue of abdomen Iraida Greg, DO 07/19/2020 M54.07 Panniculitis affecti ng regions of neck and back, lumbosacral region Iraida Greg, DO 06/22/2020 M54.07 Panniculitis affecti ng regions of neck and back, lumbosacral region Iraida Greg, DO 06/22/2020 K42.9 Umbilical hernia without obstruc tion or gangrene Iraida Greg, DO 03/17/2020 M54.07 Panniculitis affecti ng regions of neck and back, lumbosacral region Iraida Greg, DO Plan of Treatment 08/09/2020 - Iraida Greg, DO* M79.3 Panniculitis, unspecified * L98.7 Excessive and redundant skin and subcutaneous tissue * M62.08 Separation of muscle (nontraumatic), other site * * Comments:* Doing well with recovery.LIZ drains removed.May shower in 48 hrs.Garment fitted today to control edema. Wear garment 23 hrs a day. Increase daily activities.Continue with incentive spirometry. Patient is happy with results.RTO 2 weeks Functional Status Description No Information Available Mental Status Description No Information Available Referrals Description No Information Available
--- OUTSIDE RECORDS SUMMARY | 2020-08-13 13:57 | CCD ---
Author Author [facility] Organization [facility] Address Unknown Phone Unavailable Care Team Providers Care Assorter Laundry Name Role Phone TED, E SHIRLEY DO Unavailable Unavailable TED, E SHIRLEY DO Unavailable Unavailable TED, E SHIRLEY DO Unavailable Unavailable TED, E SHIRLEY DO Unavailable Unavailable TED, E SHIRLEY DO Unavailable Unavailable TED, E SHIRLEY DO Unavailable Unavailable TED, E SHIRLEY DO Unavailable Unavailable TED, E SHIRLEY DO Unavailable Unavailable TED, E SHIRLEY DO Unavailable Unavailable TED, E SHIRLEY DO Unavailable Unavailable TED, E SHIRLEY DO Unavailable Unavailable TDE, E SHIRLEY DO Unavailable Unavailable TED, E SHIRLEY DO Unavailable Unavailable TED, E SHIRLEY DO Unavailable Unavailable TED, E SHIRLEY DO Unavailable Unavailable TED, E SHIRLEY DO Unavailable Unavailable TED, E SHIRLEY DO Unavailable Unavailable TED, E SHIRLEY DO Unavailable Unavailable TED, E SHIRLEY DO Unavailable Unavailable TED, E SHIRLEY DO Unavailable Unavailable TED, E SHIRLEY DO Unavailable Unavailable O'kay, Jeny Mulligan PA Unavailable Unavailable O'kay, Jeny Mulligan PA Unavailable Unavailable O'kay, Jeny Mulligan PA Unavailable Unavailable O'kay, A Isaak PA Unavailable Unavailable O'kay, A Isaak PA Unavailable Unavailable O'kay, A Isaak PA Unavailable Unavailable O'kay, A Isaak PA Unavailable Unavailable O'kay, A Isaak PA Unavailable Unavailable O'kay, A Isaak PA Unavailable Unavailable O'kay, A Isaak PA Unavailable Unavailable O'kay, A Isaak PA Unavailable Unavailable O'kay, A Isaak PA Unavailable Unavailable O'kay, A Isaak PA Unavailable Unavailable O'kay, A Isaak PA Unavailable Unavailable O'kay, A Isaak PA Unavailable Unavailable O'kay, A Isaak PA Unavailable Unavailable O'kay, A Isaak PA Unavailable Unavailable O'kay, A Isaak PA Unavailable Unavailable O'kay, A Isaak PA Unavailable Unavailable O'kay, A Isaak PA Unavailable Unavailable O'kay, A Isaak PA Unavailable Unavailable O'kay, A Isaak PA Unavailable Unavailable O'kay, A Isaak PA Unavailable Unavailable O'kay, A Isaak PA Unavailable Unavailable O'kay, A Isaak PA Unavailable Unavailable O'kay, A Isaak PA Unavailable Unavailable O'kay, A Isaak PA Unavailable Unavailable O'kay, A Isaak PA Unavailable Unavailable O'kay, A Isaak PA Unavailable Unavailable O'kay, A Isaak PA Unavailable Unavailable O'kay, A Isaak PA Unavailable Unavailable O'kay, A Isaak PA Unavailable Unavailable O'kay, A Isaak PA Unavailable Unavailable Re-disclosure Warning The records that you are about to access may contain information from federally-assisted alcohol or drug abuse programs. If such information is present, then the following federally mandated warning applies: This information has been disclosed to you from records protected by federal confidentiality rules (42 CFR part 2). The federal rules prohibit you from making any further disclosure of this information unless further disclosure is expressly permitted by the written consent of the person to whom it pertains or as otherwise permitted by 42 CFR part 2. A general authorization for the release of medical or other information is NOT sufficient for this purpose. The Federal rules restrict any use of the information to criminally investigate or prosecute any alcohol or drug abuse patient.The records that you are about to access may contain highly sensitive health information, the redisclosure of which is protected by Article 27-F of the [facility] Public Health law. If you continue you may have access to information: Regarding HIV / AIDS; Provided by facilities licensed or operated by the [facility] Office of Mental Health; or Provided by the [facility] Office for People With Developmental Disabilities. If such information is present, then the following [facility] mandated warning applies: This information has been disclosed to you from confidential records which are protected by state law. State law prohibits you from making any further disclosure of this information without the specific written consent of the person to whom it pertains, or as otherwise permitted by law. Any unauthorized further disclosure in violation of state law may result in a fine or detention sentence or both. A general authorization for the release of medical or other information is NOT sufficient authorization for further disc losure. Family History Family Member Name Family Member Gender Family Member Status Date o f Status Description Data Source(s) Unknown Unknown Problem [facility] ([facility], ) Unknown Unknown Encounters Encounter Providers Location Date Indications Data Source(s ) Outpatient Attender: Isaak HIDALGO [facility] 07/22/2020 09:00:00 AM EST [facility] ([facility]) Outpatient Attender: Isaak HIDALGO [facility] 05/03/2020 09:00:00 AM EST [facility] ([facility]) [facility] [place] [address] [facility] [address] 04/05/2020 12:00:00 AM EDT eCW1 ([facility]) Outpatient Attender: Isaak HIDALGO [facility] 03/31/2020 09:40:00 AM EDT MED[facility] ([facility]) Outpatient Attender: SHIRLEY Lynn/Toni/Fadi/Alton reyes 03/17/2020 09:00:00 AM EDT [facility] ([facility]) Unknown [address] [facility] [address] 03/16/2020 12:00:00 AM EDT eCW1 ([facility]) Unknown [address] [facility] [address] 03/16/2020 12:00:00 AM EDT eCW1 ([facility]) Unknown [address] [facility] [address] 03/16/2020 12:00:00 AM EDT eCW1 ([facility] [address] [address] 03/03/2020 12:00:00 AM EDT eCW1 ([facility]) [address] [address] 02/25/2020 12:00:00 AM EDT [facility]1 [facility] Outpatient Attender: SHIRLEY Lynn/Toni/Fadi/Alton reyes 02/04/2020 09:00:00 AM EDT [facility] ([facility]) [facility] [address] [place] [phone] 11/24/2019 12:00:00 AM EDT eCW1 ([facility]) [address] [address] 10/15/2019 12:00:00 AM EDT eCW1 ([facility]) [address] [address] 09/24/2019 12:00:00 AM EDT eCW1 [facility] [address] [address] 09/12/2019 12:00:00 AM EDT eCW1 ([facility]) [address] [address] 09/05/2019 12:00:00 AM EDT eCW1 ([facility]) [address] [address] 08/29/2019 12:00:00 AM EST eCW1 ([facility]) [address] [address] 08/27/2019 12:00:00 AM EST eCW1 ([facility]) [address] [address] 08/27/2019 12:00:00 AM EST eCW1 ([facility]) [facility] Alejandra [place] [address] [place] [phone] 08/04/2019 12:00:00 AM EST eCW1 ([facility]) [facility] [address] [place] [address] 07/04/2019 12:00:00 AM EST eCW1 ([facility]) Immunizations Vaccine Date Status Description Data Source(s) New in 2011. IIV4 03/31/2020 10:52:00 AM EDT completed MED[facility] ([facility]) Medications Medication Brand Name Start Date Product Form Dose Route Admi nistrative Instructions Pharmacy Instructions Status Indications Reaction Description Data Source(s) Ergocalciferol 49815 UNT Oral Capsule Vitamin D (Ergocalcife rol) 05/03/2020 12:00:00 AM EST completed [facility] ([facility]) Nicotine 2 MG Oral Lozenge Nicotine Mini 05/03/2020 12:00:00 AM EST ORAL completed [facility] ([facility]) Blood Pressure Monitor Digital/Auto-Inflation 2019 12:00:00 AM EDT completed [facility] ([facility]) varenicline 1 MG Oral Tablet [Chantix] Chantix 03/31/2020 12:00:00 AM EDT ORAL completed [facility] ([facility]) 24 HR Amphetamine aspartate 5 MG / Amphe tamine Sulfate 5 MG / Dextroamphetamine saccharate 5 MG / Dextroamphetamine Sulfate 5 MG Extended Release Oral Capsule [Adderall] Adderall XR 20 MG Adderall XR 20 MG 12/23/2019 12:00:00 AM EDT 1.0 {capsule} active Adderall XR 20 MG eCW1 ([facility]) 24 HR Amphetamine aspartate 5 MG / Amphe tamine Sulfate 5 MG / Dextroamphetamine saccharate 5 MG / Dextroamphetamine Sulfate 5 MG Extended Release Oral Capsule [Adderall] Adderall XR 20 MG Adderall XR 20 MG 12/23/2019 12:00:00 AM EDT 1.0 {capsule} active Adderall XR 20 MG eCW1 ([facility]) 24 HR Amphetamine aspartate 5 MG / Amphe tamine Sulfate 5 MG / Dextroamphetamine saccharate 5 MG / Dextroamphetamine Sulfate 5 MG Extended Release Oral Capsule [Adderall] Adderall XR 20 MG Adderall XR 20 MG 12/23/2019 12:00:00 AM EDT 1.0 {capsule} active Adderall XR 20 MG eCW1 ([facility]) 24 HR Amphetamine aspartate 5 MG / Amphe tamine Sulfate 5 MG / Dextroamphetamine saccharate 5 MG / Dextroamphetamine Sulfate 5 MG Extended Release Oral Capsule [Adderall] Adderall XR 20 MG Adderall XR 20 MG 11/24/2019 12:00:00 AM EDT active 1 capsule eCW1 ([facility]) 24 HR Amphetamine aspartate 5 MG / Amphe tamine Sulfate 5 MG / Dextroamphetamine saccharate 5 MG / Dextroamphetamine Sulfate 5 MG Extended Release Oral Capsule [Adderall] Adderall XR 20 MG Adderall XR 20 MG 10/15/2019 12:00:00 AM EDT active 1 capsule eCW1 ([facility]) Amphetamine aspartate 2.5 MG / Amphetami ne Sulfate 2.5 MG / Dextroamphetamine saccharate 2.5 MG / Dextroamphetamine Sulfate 2.5 MG Oral Tablet [Adderall] Adderall 10 MG Adderall 10 MG 09/12/2019 12:00:00 AM EDT 1.0 {tablet_as_needed} active Adderall 10 M G eCW1 ([facility]) 24 HR Amphetamine aspartate 5 MG / Amphe tamine Sulfate 5 MG / Dextroamphetamine saccharate 5 MG / Dextroamphetamine Sulfate 5 MG Extended Release Oral Capsule [Adderall] Adderall XR 20 MG Adderall XR 20 MG 09/12/2019 12:00:00 AM EDT active 1 capsule eCW1 ([facility]) Amphetamine aspartate 2.5 MG / Amphetami ne Sulfate 2.5 MG / Dextroamphetamine saccharate 2.5 MG / Dextroamphetamine Sulfate 2.5 MG Oral Tablet [Adderall] Adderall 10 MG Adderall 10 MG 09/12/2019 12:00:00 AM EDT 1.0 {tablet_as_needed} active Adderall 10 M G eCW1 ([facility]) Amphetamine aspartate 2.5 MG / Amphetami ne Sulfate 2.5 MG / Dextroamphetamine saccharate 2.5 MG / Dextroamphetamine Sulfate 2.5 MG Oral Tablet [Adderall] Adderall 10 MG Adderall 10 MG 09/12/2019 12:00:00 AM EDT active 1 tablet as needed eCW1 ([facility]) Amphetamine aspartate 2.5 MG / Amphetami ne Sulfate 2.5 MG / Dextroamphetamine saccharate 2.5 MG / Dextroamphetamine Sulfate 2.5 MG Oral Tablet [Adderall] Adderall 10 MG Adderall 10 MG 09/12/2019 12:00:00 AM EDT 1.0 {tablet_as_needed} active Adderall 10 M G eCW1 ([facility]) 24 HR Nicotine 0.875 MG/HR Transdermal P atch [Nicoderm C-Q] Nicoderm CQ 21 MG/24HR Nicoderm CQ 21 MG/24HR 08/27/2019 12:00:00 AM EST 1.0 {patch_to_skin} active Nicoderm CQ 21 MG/24 HR eCW1 ([facility]) 24 HR Nicotine 0.875 MG/HR Transdermal P atch [Nicoderm C-Q] Nicoderm CQ 21 MG/24HR Nicoderm CQ 21 MG/24HR 08/27/2019 12:00:00 AM EST 1.0 {patch_to_skin} active Nicoderm CQ 21 MG/24 HR eCW1 ([facility]) 24 HR Nicotine 0.875 MG/HR Transdermal P atch [Nicoderm C-Q] Nicoderm CQ 21 MG/24HR Nicoderm CQ 21 MG/24HR 08/27/2019 12:00:00 AM EST active 1 patch to skin eCW1 ([facility]) 24 HR Nicotine 0.875 MG/HR Transdermal P atch [Nicoderm C-Q] Nicoderm CQ 21 MG/24HR Nicoderm CQ 21 MG/24HR 08/27/2019 12:00:00 AM EST 1.0 {patch_to_skin} active Nicoderm CQ 21 MG/24 HR eCW1 ([facility]) Amphetamine aspartate 2.5 MG / Amphetami ne Sulfate 2.5 MG / Dextroamphetamine saccharate 2.5 MG / Dextroamphetamine Sulfate 2.5 MG Oral Tablet [Adderall] Adderall 10 MG Adderall 10 MG 08/04/2019 12:00:00 AM EST active 1 tablet as needed eCW1 ([facility]) 24 HR Amphetamine aspartate 5 MG / Amphe tamine Sulfate 5 MG / Dextroamphetamine saccharate 5 MG / Dextroamphetamine Sulfate 5 MG Extended Release Oral Capsule [Adderall] Adderall XR 20 MG Adderall XR 20 MG 08/04/2019 12:00:00 AM EST active 1 capsule eCW1 ([facility]) Amphetamine aspartate 2.5 MG / Amphetami ne Sulfate 2.5 MG / Dextroamphetamine saccharate 2.5 MG / Dextroamphetamine Sulfate 2.5 MG Oral Tablet [Adderall] Adderall 10 MG Adderall 10 MG 08/04/2019 12:00:00 AM EST active 1 tablet as needed eCW1 ([facility]) 24 HR Amphetamine aspartate 5 MG / Amphe tamine Sulfate 5 MG / Dextroamphetamine saccharate 5 MG / Dextroamphetamine Sulfate 5 MG Extended Release Oral Capsule [Adderall] Adderall XR 20 MG Adderall XR 20 MG 08/04/2019 12:00:00 AM EST active 1 capsule eCW1 ([facility]) 24 HR Amphetamine aspartate 5 MG / Amphe tamine Sulfate 5 MG / Dextroamphetamine saccharate 5 MG / Dextroamphetamine Sulfate 5 MG Extended Release Oral Capsule [Adderall] Adderall XR 20 MG Adderall XR 20 MG 07/04/2019 12:00:00 AM EST active 1 capsule eCW1 ([facility]) Insurance Providers Payer name Policy type / Coverage type Policy ID Covered libertarian ID Covered libertarian's relationship to hill Policy [place] Plan Information SELF PAY ONLY [id number] SP [id number] [facility] [id number] SP [id number] [facility] [id number] SP [id number] ANSI-Commercial [id number] ANSI-Commercial [id number] ANSI-Commercial [id number] ANSI-Commercial [id number] ANSI-Commercial [id number] ANSI-Commercial [id number] ANSI-Commercial [id number] ANSI-Commercial [id number] ANSI-Commercial [id number] ANSI-Commercial [id number] ANSI-Commercial [id number] ANSI-Commercial [id number] ANSI-Commercial [id number] ANSI-Commercial [id number] ANSI-Commercial [id number] ANSI-Commercial [id number] ANSI-Commercial [id number] ANSI-Commercial [id number] ANSI-Commercial [id number] [employer] [place] [id number] 2 [id number] [employer] [place] O [id number] S [id number] [facility] Health Maintenance Organization (O) Family Dependent [employer] [place] [id number] HU2 [id number] N REGIONAL CLAIMS [place] -O/P [id number] 01 [id number] N REGIONAL CLAIMS [place] -O/P [id number] 01 [id number] [employer] Family Dependent [facility] [id number] [facility] [id number] Problems, Conditions, and Diagnoses Code Display Name Description Problem Type Effective Dates Data Source(s) 76954868 Hyperlipidemia Hyperlipidemia Problem 05/03/2020 12:00: 00 AM EST MEDENT ([facility]) [id number] Narcolepsy Narcolepsy Problem 03/31/2020 12:00:00 AM ED T MED[facility] ([facility]) Surgeries/Procedures Procedure Description Date Indications Data Source(s) Excision Excessive Skin And Subcutaneous Tissue Abdomen 08/03/2020 12:00:00 AM EST [facility] ([facility] EXCISION EXCESSIVE SKIN & SUBQ TISSUE ABDOMEN 08/03/19 12:00:00 AM EST MEDENT ([facility]) EXC TUMOR SOFT TISSUE ABDL WALL SUBFASCIAL <5CM 2020 12:00:00 AM EST MED[facility] ([facility]) Electrocardiogram Complete 07/22/2020 12:00:00 AM EST MEDENT ([facility]) Pierce Fee 06/22/2020 12:00:00 AM EST M EDENT ([facility], ) Cosmetic Facility Fee 06/22/2020 12:00:00 AM EST MEDENT ([facility]) EXCISION EXCESSIVE SKIN & SUBQ TISSUE ABDOMEN 06/22/20 12:00:00 AM EST MED[facility] ([facility]) Results ID Date Data Source [id number] 08/03/2020 10:42:00 AM EST MED[facility] ([facility], ) Name Value Range Interpretation Code Description Data Jessica rce(s) Supporting Document(s) Surgical pathology study Laboratory test result MED[facility] ([facility], ) FINAL DIAGNOSIS Abdominal wall, extended panniculectomy: Pannus. 08/04/2020 - 1203 CLINICAL DIAGNOSIS Panniculitis 08/03/2020 - 1452 GROSS DIAGNOSIS Received in formalin labeled "pannus, 1364 grams" are two portions of skin and subcutaneous tissue, approximately 22 x 15 x 5 cm each, as well as a few additional fragments (1364 grams per OR report). Sectioning does not reveal any gross lesion. 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 A few additional fragments of fat and focal skin are also noted in the container, 4 x 2 x 2 cm. - 08/03/2020 - 1452 Signed Natasha Vasquez MD 08/04/2020 1346 ID Date Data Source [id number] 07/29/2020 01:00:00 PM EST [facility] Name Value Range Interpretation Code Description Data Jessica rce(s) Supporting Document(s) SARS coronavirus 2 RNA Not Detected [facility] [place] This lab was ordered by [facility] and reported by [facility]. ID Date Data Source [id number] 07/26/2020 08:16:00 AM EST [facility] ([facility]) Name Value Range Interpretation Code Description Data Jessica rce(s) Supporting Document(s) Hemoglobin A1c 5.5 % Normal (applies to non-numeric r esults) [facility] ([facility]) <content>REFERENCE RANGES:</content><br/ ><content></content>
<content><=5.6% NORMAL</content>
<content>5.7-6.4% SUGGESTS IMPAIRED GLUCOSE METABOLISM/PREDIABETIC</content>
<content>>= 6.5% ABNORMAL</content>
<content></content> Estimated Average Glucose 111 mg/dL 60-110 Above high normal [facility] ([facility]) ID Date Data Source [id number] 07/26/2020 08:16:00 AM EST [facility] ([facility]) Name Value Range Interpretation Code Description Data Jessica rce(s) Supporting Document(s) Creatinine For GFR 0.75 mg/dL 0.55-1.30 Normal (applies to non -numeric results) [facility] ([facility]) Blood Urea Nitrogen 12 mg/dL 7-18 Normal (applies to non-nume bob results) [facility] ([facility]) Glucose, Fasting 100 mg/dL 70-100 Normal (applies to non-numeric results) [facility] ([facility]) Potassium Serum 4.1 meq/L 3.5-5.1 Normal (applies to non-numeric results) [facility] ([facility]) Glomerular Filtration Rate Laboratory test result Normal (applies to non- numeric results) [facility] ([facility]) <content>Units are mL/min/1.73 m2</content>
<content></content>
<content>Chronic Kidney Disease Staging per NKF:</content>
<content></content>
<content>Stage I & II GFR >=60 Normal to Mildly Decreased</content>
<content>Stage III GFR 30- 59 Moderately Decreased</content>
<content>Stage IV GFR 15-29 Severely Decreased</content>
<content>Stage V GFR <15 Very Little GFR Left</content>
<content>ESRD GFR <15 on OUTSIDE RESIDENTIAL SALES PROFESSIONAL</content>
<content></content> Sodium Level 138 meq/L 136-145 Normal (applies to non-numeric res ults) [facility] ([facility]) Chloride Level 104 meq/L 98-107 Normal (applies to non-numeric r esults) [facility] ([facility]) Carbon Dioxide Level 28 meq/L 21-32 Normal (applies to non-num maria l results) [facility] ([facility]) Anion Gap 6 meq/L 8-16 Below low normal [facility] ( [facility]) Alt/SGPT 17 U/L 12-78 Normal (applies to non-numeric resul ts) [facility] ([facility]) Ast/Sgot 9 U/L 7-37 Normal (applies to non-numeric resul ts) [facility] ([facility]) Calcium Level 8.6 mg/dL 8.5-10.1 Normal (applies to non-numeric re sults) [facility] ([facility]) Total Protein 6.6 GM/DL 6.4-8.2 Normal (applies to non-numeric re sults) [facility] ([facility]) Alkaline Phosphatase 94 U/L 45-117 Normal (applies to non-num maria l results) [facility] ([facility]) Bilirubin,Total 0.6 mg/dL 0.2-1.0 Normal (applies to non-numeric results) [facility] ([facility]) Albumin 3.5 GM/DL 3.2-5.2 Normal (applies to non-numeric resul ts) [facility] ([facility]) Albumin/Globulin Ratio 1.1 1.2-2.2 Below low normal [facility] ([facility]) ID Date Data Source [id number] 07/26/2020 08:16:00 AM EST [facility] ([facility]) Name Value Range Interpretation Code Description Data Jessica rce(s) Supporting Document(s) White Blood Count 7.2 10 4.0-10.0 Normal (applies to non-numeri c results) [facility] ([facility]) Red Blood Count 5.67 10 4.00-5.40 Above high normal [facility] ([facility]) Hematocrit 44.5 % 36.0-47.0 Normal (applies to non-numeric resul ts) [facility] ([facility]) Hemoglobin 14.3 g/dL 12.0-15.5 Normal (applies to non-numeric resul ts) [facility] ([facility]) Mean Corpuscular Volume 78.5 fl 80.0-96.0 Below low normal [facility] ([facility]) Mean Corpuscular Hemoglobin 25.2 pg 27.0-33.0 Below low normal [facility] ([facility]) Mean Corpuscular HGB Conc 32.1 g/dL 32.0-36.5 Normal (applies to non-numeric results) [facility] ([facility]) Red Cell Distribution Width 14.4 % 11.5-14.5 Norm al (applies to non-numeric results) [facility] ([facility]) Platelet Count, Automated 222 10 150-450 Normal (applies to non-numeric results) [facility] ([facility]) Neutrophils % 61.8 % 36.0-66.0 Normal (applies to non-numeric re sults) [facility] ([facility]) [place] % 8.1 % 0.0-5.0 Above high normal [facility] ([facility]) Lymph % 26.4 % 24.0-44.0 Normal (applies to non-numeric resul ts) [facility] ([facility]) Baso % 1.1 % 0.0-1.0 Above high normal [facility] ([facility]) Immature Granulocyte % 0.1 % 0-3.0 Normal (applies to non-n umeric results) [facility] ([facility]) Eos % 2.5 % 0.0-3.0 Normal (applies to non-numeric resul ts) [facility] ([facility]) Nucleated Red Blood Cell % 0.0 % 0-0 Normal (applies to n on-numeric results) [facility] ([facility]) Neutrophils # 4.4 10 1.5-8.5 Normal (applies to non-numeric re sults) [facility] ([facility]) Lymph # 1.9 10 1.5-5.0 Normal (applies to non-numeric resul ts) [facility] ([facility]) Eos # 0.2 10 0.0-0.5 Normal (applies to non-numeric resul ts) [facility] ([facility]) [place] # 0.6 10 0.0-0.8 Normal (applies to non-numeric resul ts) MED[facility] ([facility]) Baso # 0.1 10 0.0-0.2 Normal (applies to non-numeric resul ts) [facility] ([facility]) ID Date Data Source [id number] 07/22/2020 10:07:00 AM EST [facility] ([facility]) Name Value Range Interpretation Code Description Data Jessica rce(s) Supporting Document(s) EKG Laboratory test result [facility] ([facility]) Procedure Social History Code Duration Value Status Description Data Source(s ) Smoking 08/27/2019 12:00:00 AM EST Current Smoker completed Curre nt Smoker eCW1 ([facility]) Smoking 08/27/2019 12:00:00 AM EST Current Smoker completed Curre nt Smoker eCW1 ([facility]) Smoking 08/27/2019 12:00:00 AM EST Current Smoker completed Curre nt Smoker eCW1 ([facility]) Vital Signs ID Date Data Source UNK Name Value Range Interpretation Code Description Data Source(s) [place] body weight 130 [lb_av] 130 [lb_av] MEDEN T ([facility]) Oxygen saturation in Arterial blood by Pulse oximetry 98 % 98 % [facility] ([facility]) Body temperature 98.4 [degF] 98.4 [degF] [facility] ([facility]) Respiratory rate 18 /min 18 /min [facility] ( [facility]) Heart rate 96 /min 96 /min [facility] ([facility]) Body mass index (BMI) [Ratio] 29.7 kg/m2 29.7 k g/m2 [facility] ([facility]) Body weight 184.25 [lb_av] 184.25 [lb_av] MEDEN T ([facility]) Body height 66 [in_i] 66 [in_i] [facility] ([facility]) 5'6" Diastolic blood pressure 74 mm[Hg] 74 mm[Hg] [facility] ([facility]) Systolic blood pressure 124 mm[Hg] 124 mm[Hg] [facility] ([facility]) Body surface area Derived from formula 1.93 m2 1.93 m2 [facility] ([facility], ) Body weight 83.462 kg 83.462 kg [facility] ([facility], ) [place] body weight 130 [lb_av] 130 [lb_av] [facility] Body mass index (BMI) [Ratio] 29.7 kg/m2 29.7 k g/m2 [facility] ([facility]) Body weight 184.00 [lb_av] 184.00 [lb_av] [facility] Body height 66 [in_i] 66 [in_i] [facility] ([facility]) 5'6" Body temperature 97.1 [degF] 97.1 [degF] [facility] ([facility], ) Respiratory rate 16 /min 16 /min [facility] ( [facility]) Heart rate 80 /min 80 /min [facility] ([facility], ) Diastolic blood pressure 78 mm[Hg] 78 mm[Hg] [facility] ([facility], ) Systolic blood pressure 144 mm[Hg] 144 mm[Hg] [facility] ([facility], ) Diastolic blood pressure 80 mm[Hg] 80 mm[Hg] [facility] ([facility]) Systolic blood pressure 128 mm[Hg] 128 mm[Hg] LENNIE ([facility]) [place] body weight 130 [lb_av] 130 [lb_av] MED[facility] T ([facility]) Oxygen saturation in Arterial blood by Pulse oximetry 98 % 98 % [facility] ([facility]) Body temperature 97.8 [degF] 97.8 [degF] [facility] ([facility]) Respiratory rate 16 /min 16 /min [facility] ( [facility]) Heart rate 84 /min 84 /min [facility] ([facility]) Body mass index (BMI) [Ratio] 28.5 kg/m2 28.5 k g/m2 [facility] ([facility]) Body weight 176.50 [lb_av] 176.50 [lb_av] MED[facility] T ([facility]) Body height 66 [in_i] 66 [in_i] [facility] ([facility]) 5'6" [place] body weight 130 [lb_av] 130 [lb_av] [facility] T ([facility]) Oxygen saturation in Arterial blood by Pulse oximetry 97 % 97 % [facility] ([facility]) Body temperature 99.3 [degF] 99.3 [degF] [facility] ([facility]) Respiratory rate 20 /min 20 /min [facility] ( [facility]) Heart rate 101 /min 101 /min [facility] ([facility]) Body mass index (BMI) [Ratio] 28.4 kg/m2 28.4 k g/m2 [facility] ([facility]) Body weight 176.00 [lb_av] 176.00 [lb_av] MEDEN T ([facility]) Body height 66 [in_i] 66 [in_i] [facility] ([facility]) 5'6" Diastolic blood pressure 100 mm[Hg] 100 mm[Hg] [facility] ([facility]) Systolic blood pressure 170 mm[Hg] 170 mm[Hg] LENN[facility] ([facility]) Body surface area Derived from formula 1.90 m2 1.90 m2 [facility] ([facility]) Body weight 80.401 kg 80.401 kg [facility] ([facility]) [place] body weight 130 [lb_av] 130 [lb_av] MEDEN T ([facility]) Body mass index (BMI) [Ratio] 28.6 kg/m2 28.6 k g/m2 [facility] ([facility]) Body weight 177.25 [lb_av] 177.25 [lb_av] [facility] T ([facility]) Body height 66 [in_i] 66 [in_i] [facility] ([facility]) 5'6" Body temperature 97.8 [degF] 97.8 [degF] [facility] ([facility]) Heart rate 68 /min 68 /min [facility] ([facility]) Diastolic blood pressure 85 mm[Hg] 85 mm[Hg] [facility] ([facility]) Systolic blood pressure 151 mm[Hg] 151 mm[Hg] M EDENT ([facility]) Diastolic blood pressure 81 mm[Hg] 81 mm[Hg] eCW1 ([facility]) Systolic blood pressure 120 mm[Hg] 120 mm[Hg] e CW1 ([facility]) Body temperature 99.2 [degF] 99.2 [degF] eCW1 ( [facility]) Respiratory rate 18 /min 18 /min eCW1 ([facility]) Heart rate 78 /min 78 /min eCW1 ([facility]) Body mass index (BMI) [Ratio] 29.53 kg/m2 29.53 kg/m2 eCW1 ([facility]) Body height 66 [in_us] 66 [in_us] eCW1 ([facility]) Body weight Measured 183 [lb_av] 183 [lb_av] eC W1 ([facility]) Body surface area Derived from formula 1.91 m2 1.91 m2 [facility] ([facility]) Body weight 81.648 kg 81.648 kg [facility] ([facility]) [place] body weight 130 [lb_av] 130 [lb_av] [facility] Body mass index (BMI) [Ratio] 29.0 kg/m2 29.0 k g/m2 [facility] ([facility]) Body weight 180.00 [lb_av] 180.00 [lb_av] [facility] Body height 66 [in_i] 66 [in_i] [facility] ([facility]) 5'6" Respiratory rate 14 /min 14 /min [facility] ( [facility]) Heart rate 88 /min 88 /min [facility] ([facility]) Diastolic blood pressure 98 mm[Hg] 98 mm[Hg] [facility] ([facility]) Systolic blood pressure 140 mm[Hg] 140 mm[Hg] [facility] Patient Treatment Plan of Care Planned Activity Planned Date Details Description Data Source (s) 24 HR Amphetamine aspartate 5 MG / Amphe tamine Sulfate 5 MG / Dextroamphetamine saccharate 5 MG / Dextroamphetamine Sulfate 5 MG Extended Release Oral Capsule [Adderall] 12/23/2019 12:00:00 AM EDT eCW1 ([facility]) 24 HR Amphetamine aspartate 5 MG / Amphe tamine Sulfate 5 MG / Dextroamphetamine saccharate 5 MG / Dextroamphetamine Sulfate 5 MG Extended Release Oral Capsule [Adderall] 12/23/2019 12:00:00 AM EDT eCW1 ([facility]) 24 HR Amphetamine aspartate 5 MG / Amphe tamine Sulfate 5 MG / Dextroamphetamine saccharate 5 MG / Dextroamphetamine Sulfate 5 MG Extended Release Oral Capsule [Adderall] 12/23/2019 12:00:00 AM EDT eCW1 ([facility]) 24 HR Amphetamine aspartate 5 MG / Amphe tamine Sulfate 5 MG / Dextroamphetamine saccharate 5 MG / Dextroamphetamine Sulfate 5 MG Extended Release Oral Capsule [Adderall] 11/24/2019 12:00:00 AM EDT eCW1 ([facility]) 24 HR Amphetamine aspartate 5 MG / Amphe tamine Sulfate 5 MG / Dextroamphetamine saccharate 5 MG / Dextroamphetamine Sulfate 5 MG Extended Release Oral Capsule [Adderall] 10/15/2019 12:00:00 AM EDT eCW1 ([facility]) Amphetamine aspartate 2.5 MG / Amphetami ne Sulfate 2.5 MG / Dextroamphetamine saccharate 2.5 MG / Dextroamphetamine Sulfate 2.5 MG Oral Tablet [Adderall] 09/12/2019 12:00:00 AM EDT eCW1 ([facility]) Amphetamine aspartate 2.5 MG / Amphetami ne Sulfate 2.5 MG / Dextroamphetamine saccharate 2.5 MG / Dextroamphetamine Sulfate 2.5 MG Oral Tablet [Adderall] 09/12/2019 12:00:00 AM EDT eCW1 ([facility]) Amphetamine aspartate 2.5 MG / Amphetami ne Sulfate 2.5 MG / Dextroamphetamine saccharate 2.5 MG / Dextroamphetamine Sulfate 2.5 MG Oral Tablet [Adderall] 09/12/2019 12:00:00 AM EDT eCW1 ([facility]) 24 HR Amphetamine aspartate 5 MG / Amphe tamine Sulfate 5 MG / Dextroamphetamine saccharate 5 MG / Dextroamphetamine Sulfate 5 MG Extended Release Oral Capsule [Adderall] 09/12/2019 12:00:00 AM EDT eCW1 ([facility]) Amphetamine aspartate 2.5 MG / Amphetami ne Sulfate 2.5 MG / Dextroamphetamine saccharate 2.5 MG / Dextroamphetamine Sulfate 2.5 MG Oral Tablet [Adderall] 09/12/2019 12:00:00 AM EDT eCW1 ([facility]) 24 HR Nicotine 0.875 MG/HR Transdermal Patch [Nicoderm C-Q] 08/27/2019 12:00:00 AM EST eCW1 ([facility]) 24 HR Nicotine 0.875 MG/HR Transdermal Patch [Nicoderm C-Q] 08/27/2019 12:00:00 AM EST eCW1 ([facility]) 24 HR Nicotine 0.875 MG/HR Transdermal Patch [Nicoderm C-Q] 08/27/2019 12:00:00 AM EST eCW1 ([facility]) 24 HR Nicotine 0.875 MG/HR Transdermal Patch [Nicoderm C-Q] 08/27/2019 12:00:00 AM EST eCW1 ([facility]) Amphetamine aspartate 2.5 MG / Amphetami ne Sulfate 2.5 MG / Dextroamphetamine saccharate 2.5 MG / Dextroamphetamine Sulfate 2.5 MG Oral Tablet [Adderall] 08/04/2019 12:00:00 AM EST eCW1 ([facility]) 24 HR Amphetamine aspartate 5 MG / Amphe tamine Sulfate 5 MG / Dextroamphetamine saccharate 5 MG / Dextroamphetamine Sulfate 5 MG Extended Release Oral Capsule [Adderall] 08/04/2019 12:00:00 AM EST eCW1 ([facility]) 24 HR Amphetamine aspartate 5 MG / Amphe tamine Sulfate 5 MG / Dextroamphetamine saccharate 5 MG / Dextroamphetamine Sulfate 5 MG Extended Release Oral Capsule [Adderall] 07/04/2019 12:00:00 AM EST eCW1 ([facility])
--- OUTSIDE RECORDS SUMMARY | 2020-08-13 13:57 | CCD | Continuity of Care Document ---
Author Author Padmini JEAN DO Organization Unknown Address [address] [place] [address] Phone [phone] Care Team Providers Care Die Repair Machinist Name Role Phone Kinga Perera AUTM [phone] Lilliana Villagran D.O. AUTM [phone] Problems Description No Active Problems Social History [...] Available Vital Signs Date Vital Result Comment 02/04/2020 9:09am BP Systolic 151 mmHg BP Diastolic 85 mmHg Heart Rate 68 /min Body Temperature 97.8 F Height 66 inches 5'6" Weight 177.25 lb BMI (Body Mass Index) 28.6 kg/m2 [place] Body Weight 130 lb Weight 80.401 kg BSA (Body Surface Area) 1.90 m2 08/01/2019 10:57am BP Systolic 140 mmHg BP Diastolic 98 mmHg Heart Rate 88 /min Respiratory Rate 14 /min Height 66 inches 5'6" Weight 180.00 lb BMI (Body Mass Index) 29.0 kg/m2 [place] Body Weight 130 lb Weight 81.648 kg BSA (Body Surface Area) 1.91 m2 Results Description No Information Available Procedures Date Code Description Status 06/22/2020 20101 Abdominalplasty Cosmetic Complet ed 06/22/2020 001C Cosmetic Facility Fee Completed 06/22/2020 0011c [place] Fee Completed Medical Devices Description No Information Available Encounters Type Date Location Provider Dx Diagnosis Office Visit 03/17/2020 9:00a [facility] Plastic Surgery Iraida Greg, DO M54.07 Panniculitis affecting regions of neck/bk, lumbosacr region Office Visit 02/04/2020 9:00a [facility] Surgery Iraida Greg, DO K42.9 Umbilical hernia without obstruction or gangrene M54.07 Panniculitis affecting regio ns of neck/bk, lumbosacr region R22.1 Localized swelling, mass and lump, neck Assessments Date Code Description Provider 06/22/2020 M54.07 Panniculitis affecti ng regions of neck and back, lumbosacral region Iraida Greg, DO 06/22/2020 K42.9 Umbilical hernia without obstruc tion or gangrene Iraida Greg, DO 03/17/2020 M54.07 Panniculitis affecti ng regions of neck and back, lumbosacral region Iraida Greg, DO 02/04/2020 K42.9 Umbilical hernia without obstruc tion or gangrene Iraida Greg, DO 02/04/2020 M54.07 Panniculitis affecti ng regions of neck and back, lumbosacral region Iraida Greg, DO 02/04/2020 R22.1 Localized swelling, mass and lum p, neck Iraida Greg, DO Plan of Treatment Future Appointment(s):* 08/03/2020 11:15 am - Iraida Jean DO at [facility] Plastic Surgery * 08/06/2020 10:15 am - Iraida Jean DO at [facility] Cosmetic Plastic Surgery * 07/19/2020 3:00 pm - Iraida Jean DO at [facility] Cosmetic Plastic Surgery 03/17/2020 - Iraida Jean, DO* M54.07 Panniculitis affecting regions of neck and back, lumbosacral region* Comments:* Patient is a good candidate for extended panniculectomy with possible rectus muscle plication. She is stable with her weight, keeping healthy lifestyle. She has realistic expectations regarding the procedure.She is looking for help mainly to reduce the weight of the skin excess. Given her body habitus and area of non retracted skin it is reasonable to think reduction of the pannus will greatly improve her lower back pain and reduce the rate of skin infections. Risks, benefits and alternatives of the surgery discussed with patient. Risks include but not limited to bleeding, infection, delayed healing, damage of surrounding structures, DVT, PE, seroma, and asymmetry. Patient has family support for the post op period.Medical clearance will be needed for the procedure.CT abdomen reviewed with patient, incidental findings of lung nodule right bases identified. CT of chest with and without contrast ordered to evaluate. Schedule for surgery.RTO for pre op visit. Functional Status Description No Information Available Mental Status Description No Information Available Referrals Description No Information Available
--- OUTSIDE RECORDS SUMMARY | 2020-08-13 13:57 | CCD | Continuity of Care Document ---
Author Author Padmini JEAN DO Organization Unknown Address [address] [place] [address] Phone [phone] Care Team Providers Care Grading Clerk Name Role Phone Kinga Perera AUTM [phone] Lilliana Villagran D.O. AUTM Problems Description No Active Problems Social History [...] lb BMI (Body Mass Index) 29.7 kg/m2 [place] Body Weight 130 lb Weight 83.462 kg BSA (Body Surface Area) 1.93 m2 02/04/2020 9:09am BP Systolic 151 mmHg BP Diastolic 85 mmHg Heart Rate 68 /min Body Temperature 97.8 F Height 66 inches 5'6" Weight 177.25 lb BMI (Body Mass Index) 28.6 kg/m2 [place] Body Weight 130 lb Weight 80.401 kg BSA (Body Surface Area) 1.90 m2 Results Test Acquired Date Facility Test Result H/L Range Note Laboratory test finding 08/03/2020 [facility] Main Lab [address] [place] [address] [phone] Pathology Request For Service (SEE NOTE) 1 [...] Sectioning does not reveal any gross lesion. 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 A few additional fragments of fat and focal skin are also noted in the container, 4 x 2 x 2 cm. - 08/03/2020 - 145 Signed Natasha Vasquez MD 08/04/2020 1348 Procedures Date Code Description Status 08/03/2020 96911 Excision Tumor Abdominal Wall [place] bfascial Completed 08/03/2020 20665 Excision Excessive Skin Subcutan eous Tissue Abdominoplasty Completed 08/03/2020 94942 Excision Excessive Skin And Subc utaneous Tissue Abdomen Completed 06/22/2020 11540 Abdominalplasty Cosmetic Complet ed 06/22/2020 001C Cosmetic Facility Fee Completed 06/22/2020 0011c [place] Fee Completed Medical Devices Description No Information Available Encounters Type Date Location Provider Dx Diagnosis Office Visit 03/17/2020 9:00a [facility] Plastic Surgery Iraida Jean DO M54.07 Panniculitis affecting regions of neck/bk, lumbosacr region Assessments Date Code Description Provider 08/03/2020 M79.3 Panniculitis, unspecified Iraida Jean, DO 08/03/2020 L98.7 Excessive and redundant skin and subcutaneous tissue Iraida Jean, DO 08/03/2020 M62.08 Separation of muscle (nontraumat ic), other site Iraida Jean, DO 08/03/2020 D21.4 Benign neoplasm of connective an d other soft tissue of abdomen Iraida Jean, DO 07/19/2020 M54.07 Panniculitis affecti ng regions of neck and back, lumbosacral region Iraida Greg, DO 06/22/2020 M54.07 Panniculitis affecti ng regions of neck and back, lumbosacral region Iraida Greg, DO 06/22/2020 K42.9 Umbilical hernia without obstruc tion or gangrene Iraida Greg, DO 03/17/2020 M54.07 Panniculitis affecti ng regions of neck and back, lumbosacral region Iraida Greg, DO Plan of Treatment Future Appointment(s):* 08/09/2020 3:30 pm - Iraida Jean DO at [facility] Plastic Surgery 07/19/2020 - Iraida Jean DO* M54.07 Panniculitis affecting regions of neck and back, lumbosacral region* Comments:* Pre op visit today.Risks, benefits and alternatives of procedure discussed again. Post op period discussed. Risks include but not limited to bleeding, infection, seroma, asymmetry, delayed healing, damage to surrounding tissue, pain, unacceptable cosmetic result, deep vein thrombosis, and pulmonary embolism.Smoking cessation discussed again.All questions answered.Ready for surgery.RTO post op. Functional Status Description No Information Available Mental Status Description No Information Available Referrals Description No Information Available
--- OUTSIDE RECORDS SUMMARY | 2020-08-13 13:57 | CCD | Continuity of Care Document ---
Author Author Padmini OCONNOR Organization Unknown [place] [address] Phone [phone] Care Team Providers Care Right Of Way Man Name Role Phone Lilliana Villagran D.O. AUTM GregIraida DO AUTM [phone] Problems Active Problems Provider Date Hyperlipidemia ROCKY Turner Onset: 05/03/2020 Narcolepsy ROCKY Turner Onset: 03/31/2020 Social History Type Date Description Comments Sex Unknown Tobacco Use Start: Unknown Heavy tobacco smoker (more than 10 cigarettes/day) 1 pack a day Smoking Status Reviewed: 03/31/20 Heavy tobacco smoker (more than 10 cigarettes/day) 1 pack a day Allergies, Adverse Reactions, Alerts Description No Known Drug Allergies Medications Active Medications SIG Qnty Indications Ordering Provide r Date Simvastatin 20mg Tablets take one tablet by mouth each night Unknown Adderall XR 20mg Caps ER 24HR 1 capsule by mouth every morning. istop: [id number] 30caps G47.419 Lilliana Alexis D.O. Adderall 10mg Tablets one tablet daily as needed, no later then 2 pm 30tabs G47.419 Seth Guevara.O. History Medications Vitamin D (Ergocalciferol) 1.25mg (88676 Ut) Capsules 1 capsule weekly for 12 weeks 12caps Lilliana Colon D.O. 05/03/2020 - 07/22/2020 Nicotine Mini 2mg Lozenges take one lozenger by mouth every 6 hours or as needed for nicotine dependence. 81units F17.210 Seth Guevara.O. 05/03/2020 - 06/07/2020 Chantix 1mg Tablets take one tablet by mouth twice a day. 180tabs F17.210 Seth Guevara.O. - 05/03/2020 Blood Pressure Monitor Digital/Auto-In flation Misc one unit, check blood pressure regularly 1units R03.0 Juan David GilesO. 03/31/2020 - 06/07/2020 Immunizations CPT Code Status Date Vaccine Lot # [id number] Given 03/31/2020 Influenza Virus Vaccine, Quadrivalent, Split, Preservative Free [id number] Vital Signs Date Vital Result Comment 07/22/2020 9:56am BP Systolic 124 mmHg BP Diastolic 74 mmHg Height 66 inches 5'6" Weight 184.25 lb BMI (Body Mass Index) 29.7 kg/m2 Heart Rate 96 /min Respiratory Rate 18 /min Body Temperature 98.4 F O2 % BldC Oximetry 98 % Mays Body Weight 130 lb 05/03/2020 9:57am BP Systolic 128 mmHg BP Diastolic 80 mmHg Height 66 inches 5'6" Weight 176.50 lb BMI (Body Mass Index) 28.5 kg/m2 Heart Rate 84 /min Respiratory Rate 16 /min Body Temperature 97.8 F O2 % BldC Oximetry 98 % [place]ays Body Weight 130 lb Results Test Acquired Date Facility Test Result H/L Range Note CBC With Differential 07/26/[address] [address] [phone] White Blood Count 7.2 10 Normal 4.0-10.0 Red Blood Count 5.67 10 High 4.00-5.40 Hemoglobin 14.3 g/dL Normal 12.0-15.5 Hematocrit 44.5 % Normal 36.0-47.0 Mean Corpuscular Volume 78.5 fl Low 80.0-96.0 Mean Corpuscular Hemoglobin 25.2 pg Low 27.0-33.0 Mean Corpuscular HGB Conc 32.1 g/dL Normal 32.0-36.5 Red Cell Distribution Width 14.4 % Normal 11.5-14.5 Platelet Count, Automated 222 10 Normal 150-450 Neutrophils % 61.8 % Normal 36.0-66.0 Lymph % 26.4 % Normal 24.0-44.0 Sherman % 8.1 % High 0.0-5.0 Eos % 2.5 % Normal 0.0-3.0 Baso % 1.1 % High 0.0-1.0 Immature Granulocyte % 0.1 % Normal 0-3.0 Nucleated Red Blood Cell % 0.0 % Normal 0-0 Neutrophils # 4.4 10 Normal 1.5-8.5 Lymph # 1.9 10 Normal 1.5-5.0 Sherman # 0.6 10 Normal 0.0-0.8 Eos # 0.2 10 Normal 0.0-0.5 Baso # 0.1 10 Normal 0.0-0.2 Comprehensive Metabolic Profil 07/26/[address] [address] [phone] Glucose, Fasting 100 mg/dL Normal 70-100 Blood Urea Nitrogen 12 mg/dL Normal 7-18 Creatinine For GFR 0.75 mg/dL Normal 0.55-1.30 Glomerular Filtration Rate > 60.0 Normal >58 1 Sodium Level 138 mEq/L Normal 136-145 Potassium Serum 4.1 mEq/L Normal 3.5-5.1 Chloride Level 104 mEq/L Normal 98-107 Carbon Dioxide Level 28 mEq/L Normal 21-32 Anion Gap 6 mEq/L Low 8-16 Calcium Level 8.6 mg/dL Normal 8.5-10.1 Ast/Sgot 9 U/L Normal 7-37 Alt/SGPT 17 U/L Normal 12-78 Alkaline Phosphatase 94 U/L Normal 45-117 Bilirubin,Total 0.6 mg/dL Normal 0.2-1.0 Total Protein 6.6 GM/DL Normal 6.4-8.2 Albumin 3.5 GM/DL Normal 3.2-5.2 Albumin/Globulin Ratio 1.1 Low 1.2-2.2 Hemoglobin A1c 07/26/2020 [facility] [address] [place] [address] [phone] Hemoglobin A1c 5.5 % Normal 2 Estimated Average Glucose 111 mg/dL High 60-110 Order 07/22/2020 In House Orders EKG see report 1 Units are mL/min/1.73 m2 Chronic Kidney Disease Staging per NKF: Stage I & II GFR >=60 Normal to Mildly Decreased Stage III GFR 30-59 Moderately Decreased Stage IV GFR 15-29 Severely Decreased Stage V GFR <15 Very Little GFR Left ESRD GFR <15 on PHOTOLETTERING MACHINE OPERATOR 2 REFERENCE RANGES: <=5.6% NORMAL 5.7-6.4% SUGGESTS IMPAIRED GLUCOSE META BOLISM/PREDIABETIC >= 6.5% ABNORMAL Procedures Date Code Description Status 07/22/2020 06167 Electrocardiogram Complete Compl eted Medical Devices Description No Information Available Encounters Type Date Location Provider Dx Diagnosis Office Visit 07/22/2020 10:00a [facility] ROCKY Turner Z01.818 Encounter for other preproce dural examination G47.419 Narcolepsy without cataplexy R73.01 Impaired fasting glucose M54.07 Panniculitis affecting regio ns of neck/bk, lumbosacr region Office Visit 05/03/2020 10:00a [facility] ROCKY Turner G47.419 Narcolepsy without cataplexy F17.210 Nicotine dependence, cigaret nan, uncomplicated R91.1 Solitary pulmonary nodule K42.0 Umbilical hernia with obstru ction, without gangrene B35.4 Tinea corporis E78.5 Hyperlipidemia, unspecified R73.01 Impaired fasting glucose Office Visit 03/31/2020 9:40a [facility] ROCKY Turner G47.419 Narcolepsy without cataplexy E78.5 Hyperlipidemia, unspecified F17.210 Nicotine dependence, cigaret nan, uncomplicated Z12.31 Encntr screen mammogram for malignant neoplasm of breast R91.1 Solitary pulmonary nodule R03.0 Elevated blood-pressure read ing, w/o diagnosis of htn Z13.29 Encounter for screening for oth suspected endocrine disorder Z23 Encounter for immunization Assessments Date Code Description Provider 07/22/2020 Z01.818 Encounter for other preprocedura l examination ROCKY Turner 07/22/2020 G47.419 Narcolepsy without cataplexy Fabio ROCKY Kaur 07/22/2020 R73.01 Impaired fasting glucose ROCKY Turner 07/22/2020 M54.07 Panniculitis affecti ng regions of neck and back, lumbosacral region ROCKY Turner 05/03/2020 G47.419 Narcolepsy without cataplexy ROCKY Juares 05/03/2020 F17.210 Nicotine dependence, cigarettes, uncomplicated ROCKY Turner 05/03/2020 R91.1 Solitary pulmonary nodule ROCKY Watts 05/03/2020 K42.0 Umbilical hernia with obstructio n, without gangrene ROCKY Turner 05/03/2020 B35.4 Tinea corporis ROCKY Turner 05/03/2020 E78.5 Hyperlipidemia, unspecified ROCKY Hodge 05/03/2020 R73.01 Impaired fasting glucose ROCKY Turner 03/31/2020 G47.419 Narcolepsy without cataplexy ROCKY Juares 03/31/2020 E78.5 Hyperlipidemia, unspecified ROCKY Hodge 03/31/2020 F17.210 Nicotine dependence, cigarettes, uncomplicated ROCKY Turner 03/31/2020 Z12.31 Encounter for screen ing mammogram for malignant neoplasm of breast ROCKY Turner 03/31/2020 R91.1 Solitary pulmonary nodule ROCKY Watts 03/31/2020 R03.0 Elevated blood-press ure reading, without diagnosis of hypertension ROCKY Turner 03/31/2020 Z13.29 Encounter for screen ing for other suspected endocrine disorder ROCKY Turner 03/31/2020 Z23 Encounter for immunization ROCKY Riojas Plan of Treatment Future Appointment(s):* 08/31/2020 10:00 am - ROCKY Turner at [facility] Functional Status Description No Information Available Mental Status Description No Information Available Referrals Description No Information Available
== END 2020-08-04 13:55 | disposition home or self-care (01) ==
LOC: M SDC 06:18 → M MS5PR 06:19 → M SDC 12:50 → M MS5PR 08-04 13:55 → M SDC 08-04 13:55
PROVIDERS: ADMIT Plastic Surgery Surgery of the Hand; ATTEND Plastic Surgery Surgery of the Hand
DX: M54.07 Panniculitis affecting regions of neck and back, lumbosacral region (principal); E78.49 Other hyperlipidemia; F17.218 Nicotine dependence, cigarettes, with other nicotine-induced disorders; Z92.3 Personal history of irradiation; R91.1 Solitary pulmonary nodule; Z79.899 Other long term (current) drug therapy; G47.419 Narcolepsy without cataplexy
CPT/HCPCS: 15830; 15847; 81025; 88302; 96365; 96366; 96375; 96376; C9290; J0131; J0690; J1100; J1170; J1644; J2250; J2270; J2405; J2765; J3010

== ENCOUNTER → 2020-09-01 | Outpatient (CLI) | payer OTHER ==
[~2020-09-01] MED LIST changes: +PERCOCET PO
--- NOTE | 2020-09-01 15:09 | REP ---
INDICATION: SOLITARY PULMONARY NODULE COMPARISON: 03/25/2020 . TECHNIQUE: Axial noncontrast images from the thoracic inlet to the upper abdomen with coronal and sagittal reformations. This CT examination was performed using the following dose reduction techniques: Automated exposure control, adjustment of mA and/or kv according to the patient's size, and use of iterative reconstruction technique. FINDINGS: The bilateral lung lindsey are well aerated and the 6 mm noncalcified subpleural nodule along the posterior aspect of the right lower lobe (series 201; image 55) remains stable. No consolidation, pleural effusion, or further suspicious nodule/mass lesion appreciated. No pneumothorax. Tracheobronchial tree is patent. The mediastinum demonstrates normal thoracic aorta, pulmonary vasculature, and heart/pericardium. No adenopathy. Surrounding musculoskeletal structures are intact. Limited upper abdomen demonstrates normal bilateral adrenal glands. IMPRESSION: Stable solitary 6 mm right lower lobe subpleural nodule. <Electronically signed by Eren Beltran > 09/01/20 [id number]
== END ==
LOC: M RAD 14:11
PROVIDERS: ATTEND Physician Assistant
DX: R91.1 Solitary pulmonary nodule (principal)

== ENCOUNTER 2021-06-05 15:18 | Emergency (ER) | payer OTHER ==
[~2021-06-05] VITALS: Ht 170.2 cm; Wt 79.5 kg
[2021-06-05 15:23] VITALS: BP 137/93
--- OUTSIDE RECORDS SUMMARY | 2021-06-05 15:23 | CCD ---
Author Author [facility] Organization [facility] Address Unknown Phone Unavailable Care Team Providers Care Baking Assistant Name Role Phone Laura'kay, A Isaak PA Unavailable Unavailable O'kay, A [...] Unavailable O'kay, A Isaak PA Unavailable Unavailable Munir Galvez Unavailable [phone] Holly Galvezon Unavailable [phone] Holly Galvezon Unavailable [phone] Holly Galvezon Unavailable [phone] Munir Galvez Unavailable [phone] Munir Galvez Unavailable [phone] Re-disclosure Warning The records that you are [...] is protected by Article 27-F of the [facility] Public Health law. If you continue you may have access to information: Regarding HIV / AIDS; Provided by facilities licensed or operated by the [facility] Office of Mental Health; or Provided by the [facility] Office for People With Developmental Disabilities. If such information is present, then the following [facility] mandated warning applies: This information [...] law may result in a fine or halfway sentence or both. A general authorization for the release of medical or other information is NOT sufficient authorization for further disc losure. Family History Family Member Name Family Member Gender Family Member Status Date o f Status Description Data Source(s) Unknown Unknown Problem [facility] ([facility]) Unknown Unknown Encounters Encounter Providers Location Date Indications Data Source(s ) Outpatient Attender: Munir Galvez 05/25 02:40:21 PM EST - 05/25/2021 04:36:19 PM EST [facility] ([facility] ) Outpatient Attender: Isaak HIDALGO [facility] 07/22/2020 09:00:00 AM EST [facility] ([facility]) Outpatient Attender: Isaak HIDALGO [facility] 05/03/2020 09:00:00 AM EST [facility] ([facility]) Immunizations Vaccine Date Status Description Data Source(s) COVID-19 VACCINE Moderna 09/30/2020 12:00:00 AM EDT completed [facility] Vaccine Series Complete: YESThis Data wa s Submitted to [facility] Via [facility]. COVID-19 VACCINE Moderna 09/02/2020 12:00:00 AM EST completed [facility] Vaccine Series Complete: NOThis Data was Submitted to [facility] Via [employer]. Medications Medication Brand Name Start Date Product Form Dose Route Admi nistrative Instructions Pharmacy Instructions Status Indications Reaction Description Data Source(s) Nicotine 2 MG Oral Lozenge Nicotine Mini 05/03/2020 12:00:00 AM EST ORAL completed [facility] ([facility]) Ergocalciferol 01521 UNT Oral Capsule Vitamin D (Ergocalcife rol) 05/03/2020 12:00:00 AM EST completed [facility] ([facility]) varenicline 1 MG Oral Tablet [Chantix] Chantix 03/31/2020 12:00:00 AM EDT ORAL completed [facility] ([facility]) Blood Pressure Monitor Digital/Auto-Inflation 2019 12:00:00 AM EDT completed [facility] ([facility]) Insurance Providers Payer name Policy type / Coverage type Policy ID Covered constitution party ID Covered constitution party's relationship to hill Policy [place] Plan Information [facility] [place] 2] [id number] SP [id number] [facility] / [id number] Self [id number] SELF PAY COSMETIC [id number] SP [id number] [facility] [place] 2] [id number] SP [id number] SELF PAY ONLY [id number] SP [id number] ANSI-Commercial [id number] ANSI-Commercial [id number] ANSI-Commercial [id number] ANSI-Commercial [id number] ANSI-Commercial [id number] ANSI-Commercial [id number] ANSI-Commercial [id number] ANSI-Commercial [id number] ANSI-Commercial [id number] ANSI-Commercial [id number] ANSI-Commercial [id number] ANSI-Commercial [id number] ANSI-Commercial [id number] ANSI-Commercial [id number] ANSI-Commercial [id number] ANSI-Commercial [id number] ANSI-Commercial [id number] ANSI-Commercial [id number] ANSI-Commercial [id number] [facility] [id number] 2 [id number] [facility] O [id number] S [id number] [employer] [facility] [employer] Health Maintenance Organization (HMO) [id number] Family Dependent [facility] [id number] HU2 [id number] N [employer]ONZALE[employer] -O/P [id number] 01 [id number] N [employer]IONAL CLAIM[employer] -O/P [id number] 01 [id number] [employer] 2049 Family Dependent [facility] [id number] [facility] [id number] Problems, Conditions, and Diagnoses Code Display Name Description Problem Type Effective Dates Data Source(s) 34169454 Hyperlipidemia Hyperlipidemia Problem 05/03/2020 12:00: 00 AM EST [facility] ([facility]) Surgeries/Procedures Procedure Description Date Indications Data Source(s) Excision Excessive Skin And Subcutaneous Tissue Abdomen 08/03/2020 12:00:00 AM EST [facility] ([facility], ) EXCISION EXCESSIVE SKIN & SUBQ TISSUE ABDOMEN 08/03/19 12:00:00 AM EST [facility] ([facility], ) EXC TUMOR SOFT TISSUE ABDL WALL SUBFASCIAL <5CM 2020 12:00:00 AM EST [facility] ([facility], ) Electrocardiogram Complete 07/22/2020 12:00:00 AM EST [facility] ([facility]) Pierce Fee 06/22/2020 12:00:00 AM EST M EDENT ([facility], ) Cosmetic Facility Fee 06/22/2020 12:00:00 AM EST [facility] ([facility], ) EXCISION EXCESSIVE SKIN & SUBQ TISSUE ABDOMEN 06/22/20 20 12:00:00 AM EST [facility] ([facility], ) Results ID Date Data Source [id number] 05/25/2021 03:00:00 PM EST [facility] Name Value Range Interpretation Code Description Data Jessica rce(s) Supporting Document(s) SARS-CoV-2 RNA Resp Ql JUAN R+probe NOT DETECTED [facility] This lab was ordered by [facility] and reported by [facility] Madrigal. ID Date Data Source [id number] 08/03/2020 10:42:00 AM EST [facility] ([facility], ) Name Value Range Interpretation Code Description Data Jessica rce(s) Supporting Document(s) Surgical pathology study Laboratory test result [facility] ([facility], ) FINAL DIAGNOSIS Abdominal wall, extended panniculectomy: Pannus. 08/04/2020 - 1203 CLINICAL DIAGNOSIS Panniculitis 08/03/2020 - 145 GROSS DIAGNOSIS Received in formalin labeled "pannus, 1364 grams" are two portions of skin and subcutaneous tissue, approximately 22 x 15 x 5 cm each, as well as a few additional fragments (1364 grams per OR report). Sectioning does not reveal any gross lesion. Supervisor Sample Preparation in one. A few additional fragments of fat and focal skin are also noted in the container, 4 x 2 x 2 cm. - 08/03/2020 - 1451 Signed Natasha Vasquez MD 08/04/2020 1348 ID Date Data Source [id number] 07/29/2020 01:00:00 PM EST [facility] Name Value Range Interpretation Code Description Data Jessica rce(s) Supporting Document(s) SARS coronavirus 2 RNA Not Detected [facility] This lab was ordered by [facility] and reported by [facility]. ID Date Data Source [id number] 07/26/2020 08:16:00 AM EST [facility] ([facility]) Name Value Range Interpretation Code Description Data Jessica rce(s) Supporting Document(s) Hemoglobin A1c 5.5 % Normal (applies to non-numeric r esults) [facility]) <content>REFERENCE RANGES:</content><br/ ><content></content>
<content><=5.6% NORMAL</content>
<content>5.7-6.4% SUGGESTS IMPAIRED GLUCOSE METABOLISM/PREDIABETIC</content>
<content>>= 6.5% ABNORMAL</content>
<content></content> Estimated Average Glucose 111 mg/dL 60-110 Above high normal [facility] ([facility]) ID Date Data Source [id number] 07/26/2020 08:16:00 AM EST [facility]) Name Value Range Interpretation Code Description Data Jessica rce(s) Supporting Document(s) Creatinine For GFR 0.75 mg/dL 0.55-1.30 Normal (applies to non -numeric results) [facility] ([facility]) Blood Urea Nitrogen 12 mg/dL 7-18 Normal (applies to non-nume bob results) [facility] ([facility]) Glucose, Fasting 100 mg/dL 70-100 Normal (applies to non-numeric results) [facility] ([facility]) Potassium Serum 4.1 meq/L 3.5-5.1 Normal (applies to non-numeric results) [facility] ([facility]) Glomerular Filtration Rate Laboratory test result Normal (applies to non- numeric results) [facility] ([facility]) <content>Units are mL/min/1.73 m2</content>
<content></content>
<content>Chronic Kidney Disease Staging per NKF:</content>
<content></content>
<content>Stage I & II GFR >=60 Normal to Mildly Decreased</content>
<content>Stage III GFR 30- 59 Moderately Decreased</content>
<content>Stage IV GFR 15-29 Severely Decreased</content>
<content>Stage V GFR <15 Very Little GFR Left</content>
<content>ESRD GFR <15 on DOCK BUILDER</content>
<content></content> Sodium Level 138 meq/L 136-145 Normal (applies to non-numeric res ults) [facility] ([facility]) Chloride Level 104 meq/L 98-107 Normal (applies to non-numeric r esults) [facility] ([facility]) Carbon Dioxide Level 28 meq/L 21-32 Normal (applies to non-num maria l results) [facility] ([facility]) Anion Gap 6 meq/L 8-16 Below low normal [facility] ( [facility]) Alt/SGPT 17 U/L 12-78 Normal (applies to non-numeric resul ts) [facility]) Ast/Sgot 9 U/L 7-37 Normal (applies to non-numeric resul ts) [facility] ([facility]) Calcium Level 8.6 mg/dL 8.5-10.1 Normal (applies to non-numeric re sults) [facility] ([facility]) Total Protein 6.6 GM/DL 6.4-8.2 Normal (applies to non-numeric re sults) [facility] ([facility]) Alkaline Phosphatase 94 U/L 45-117 Normal (applies to non-num maria l results) [facility] ([facility]) Bilirubin,Total 0.6 mg/dL 0.2-1.0 Normal (applies to non-numeric results) [facility] ([facility]) Albumin 3.5 GM/DL 3.2-5.2 Normal (applies to non-numeric resul ts) [facility] ([facility]) Albumin/Globulin Ratio 1.1 1.2-2.2 Below low [facility] ID Date Data Source [id number] 07/26/2020 08:16:00 AM EST [facility] ([facility]) Name Value Range Interpretation Code Description Data Jessica rce(s) Supporting Document(s) White Blood Count 7.2 10 4.0-10.0 Normal (applies to non-numeri c results) [facility]) Red Blood Count 5.67 10 4.00-5.40 Above high normal [place] [facility] ([facility]) Hematocrit 44.5 % 36.0-47.0 Normal (applies to non-numeric resul ts) [facility] ([facility]) Hemoglobin 14.3 g/dL 12.0-15.5 Normal (applies to non-numeric resul ts) [facility] ([facility]) Mean Corpuscular Volume 78.5 fl 80.0-96.0 Below low normal [facility] Mean Corpuscular Hemoglobin 25.2 pg 27.0-33.0 Below low normal [facility] ([facility]) Mean Corpuscular HGB Conc 32.1 g/dL 32.0-36.5 Normal (applies to non-numeric results) [facility] ([facility]) Red Cell Distribution Width 14.4 % 11.5-14.5 Norm al (applies to non-numeric results) [facility] ([facility]) Platelet Count, Automated 222 10 150-450 Normal (applies to non-numeric results) [facility] ([facility]) Neutrophils % 61.8 % 36.0-66.0 Normal (applies to non-numeric re sults) [facility] ([facility]) Amelia % 8.1 % 0.0-5.0 Above high normal [facility] ([facility]) Lymph % 26.4 % 24.0-44.0 Normal (applies to non-numeric resul ts) [facility] ([facility]) Baso % 1.1 % 0.0-1.0 Above high normal [facility] ([facility]) Immature Granulocyte % 0.1 % 0-3.0 Normal (applies to non-n umeric results) [facility] ([facility]) Eos % 2.5 % 0.0-3.0 Normal (applies to non-numeric resul ts) [facility] ([facility]) Nucleated Red Blood Cell % 0.0 % 0-0 Normal (applies to n on-numeric results) [facility] ([facility]) Neutrophils # 4.4 10 1.5-8.5 Normal (applies to non-numeric re sults) [facility] ([facility]) Lymph # 1.9 10 1.5-5.0 Normal (applies to non-numeric resul ts) [facility] ([facility]) Eos # 0.2 10 0.0-0.5 Normal (applies to non-numeric resul ts) [facility] ([facility]) Amelia # 0.6 10 0.0-0.8 Normal (applies to non-numeric resul ts) [facility] ([facility]) Baso # 0.1 10 0.0-0.2 Normal (applies to non-numeric resul ts) [facility] ([facility]) ID Date Data Source [id number] 07/22/2020 10:07:00 AM EST [facility] ([facility]) Name Value Range Interpretation Code Description Data Jessica rce(s) Supporting Document(s) EKG Laboratory test result [facility] ([facility]) Procedure Social History No Information Vital Signs ID Date Data Source UNK Name Value Range Interpretation Code Description Data Source(s) Systolic blood pressure 132 mm[Hg] 132 mm[Hg] M [facility] ([facility]) Diastolic blood pressure 86 mm[Hg] 86 mm[Hg] [facility] ([facility]) Respiratory rate 18 /min 18 /min [facility] ( [facility]) Body temperature 96.4 [degF] 96.4 [degF] [facility] ([facility]) Body height 66 [in_i] 66 [in_i] [facility] ([facility]) 5'6" [place] body weight 130 [lb_av] 130 [lb_av] [facility] ([facility]) Systolic blood pressure 118 mm[Hg] 118 mm[Hg] [facility] ([facility]) Diastolic blood pressure 78 mm[Hg] 78 mm[Hg] [facility] ([facility]) Heart rate 84 /min 84 /min [facility] ([facility]) Respiratory rate 14 /min 14 /min [facility] ( [facility]) Body temperature 97.8 [degF] 97.8 [degF] [facility] ([facility]) Body height 66 [in_i] 66 [in_i] [facility] ([facility]) 5'6" [place] body weight 130 [lb_av] 130 [lb_av] [facility] ([facility]) Systolic blood pressure 124 mm[Hg] 124 mm[Hg] M [facility] ([facility]) Diastolic blood pressure 74 mm[Hg] 74 mm[Hg] [facility] ([facility]) Respiratory rate 18 /min 18 /min [facility] ( [facility]) Body weight 184.25 [lb_av] 184.25 [lb_av] [facility] ([facility]) Body temperature 98.4 [degF] 98.4 [degF] [facility] ([facility]) Body mass index (BMI) [Ratio] 29.7 kg/m2 29.7 k g/m2 [facility] ([facility]) Heart rate 96 /min 96 /min [facility] Body height 66 [in_i] 66 [in_i] [facility] ([facility]) 5'6" Oxygen saturation in Arterial blood by Pulse oximetry 98 % 98 % [facility] ([facility]) [place] body weight 130 [lb_av] 130 [lb_av] [facility] ([facility]) Body surface area Derived from formula 1.93 m2 1.93 m2 [facility] ) Respiratory rate 16 /min 16 /min [facility] ( [facility], ) Body temperature 97.1 [degF] 97.1 [degF] [facility] ([facility]) Systolic blood pressure 144 mm[Hg] 144 mm[Hg] [facility] ([facility]) Diastolic blood pressure 78 mm[Hg] 78 mm[Hg] [facility] ([facility]) Heart rate 80 /min 80 /min [facility] ([facility]) Body height 66 [in_i] 66 [in_i] [facility] ([facility]) 5'6" Body weight 184.00 [lb_av] 184.00 [lb_av] [facility] ([facility]) Body mass index (BMI) [Ratio] 29.7 kg/m2 29.7 k g/m2 [facility] ([facility]) [place] body weight 130 [lb_av] 130 [lb_av] [facility] ([facility]) Body weight 83.462 kg 83.462 kg [facility] ([facility]) Systolic blood pressure 128 mm[Hg] 128 mm[Hg] [facility] ([facility]) [place] body weight 130 [lb_av] 130 [lb_av] [facility] ([facility]) Diastolic blood pressure 80 mm[Hg] 80 mm[Hg] [facility] Body height 66 [in_i] 66 [in_i] [facility] ([facility]) 5'6" Body weight 176.50 [lb_av] 176.50 [lb_av] [facility] ([facility]) Body mass index (BMI) [Ratio] 28.5 kg/m2 28.5 k g/m2 [facility] Heart rate 84 /min 84 /min [facility] ([facility]) Respiratory rate 16 /min 16 /min [facility] ( [facility]) Body temperature 97.8 [degF] 97.8 [degF] [facility] ([facility]) Oxygen saturation in Arterial blood by Pulse oximetry 98 % 98 % [facility] ([facility])
--- NOTE | 2021-06-05 15:54 | REP ---
INDICATION: twist/fall, pain, hx mass femur, pls get all of femur. COMPARISON: None. TECHNIQUE: Five views of the right knee and distal femur are obtained. FINDINGS: Five views of the right knee and distal femur demonstrate normal bones, joints, and soft tissues. No fracture or subluxation is seen. No opaque foreign body noted. IMPRESSION: Negative right knee and distal femur series. The proximal femur is not included in the field of view. The proximal femoral injury is suspected, femur and or hip radiographs should be considered. <Electronically signed by Bandar Salgado > 06/05/21 [id number]
--- NOTE | 2021-06-05 15:54 | REP ---
INDICATION: twist/fall, pain, hx mass femur, pls get all of femur. COMPARISON: None. TECHNIQUE: AP and frogleg views of the right hip and proximal femur. FINDINGS: Femoral head is smooth and rounded and hip joint space is preserved. No proximal femur fracture seen. Right hemipelvis is intact as visualized. IMPRESSION: Negative radiographs of the right hip and proximal femur. <Electronically signed by Bandar Salgado > 06/05/21 [id number]
--- OUTSIDE RECORDS SUMMARY | 2021-06-05 19:13 | CCD ---
Author Author [facility] Organization [facility] Address Unknown Phone Unavailable Care Team Providers Care Music Writer Name Role Phone Laura'kay, A Isaak PA [...] Unavailable O'kay, A Isaak PA Unavailable Unavailable O'aky, A Isaak PA Unavailable Unavailable O'kay, A [...] Isaak PA Unavailable Unavailable Munir Galvez Unavailable [phone] Holly Galvezon Unavailable [phone] Holly Galvezon Unavailable [phone] Holly Galvezon Unavailable [phone] Munir Galvez Unavailable [phone] Munir Galvez Unavailable [phone] Re-disclosure Warning The records that you are [...] is protected by Article 27-F of the [facility] Public Health law. If you continue you may have access to information: Regarding HIV / AIDS; Provided by facilities licensed or operated by the [facility] Office of Mental Health; or Provided by the [facility] Office for People With Developmental Disabilities. If such information is present, then the following [facility] mandated warning applies: This information has been [...] law may result in a fine or skilled nursing sentence or both. A general authorization for [...] EST - 05/25/2021 04:36:19 PM EST [facility] ([facility] ) Outpatient Attender: Isaak HIDALGO [facility] 07/22/2020 09:00:00 AM EST [facility] ([facility]) Outpatient Attender: Isaak HIDALGO [facility] 05/03/2020 09:00:00 AM EST [facility] ([facility]) Immunizations Vaccine Date Status Description Data Source(s) COVID-19 VACCINE Moderna 09/30/2020 12:00:00 AM EDT completed [facility] Vaccine Series Complete: YESThis Data wa s Submitted to [facility] Via [employer]. COVID-19 VACCINE Moderna 09/02/2020 12:00:00 AM EST completed [facility] Vaccine Series Complete: NOThis Data was Submitted to [facility] Via [employer]. Medications Medication Brand Name Start Date Product Form Dose Route Admi nistrative Instructions Pharmacy Instructions Status Indications Reaction Description Data Source(s) Nicotine 2 MG Oral Lozenge Nicotine Mini 05/03/2020 12:00:00 AM EST ORAL completed [facility] ([facility]) Ergocalciferol 31674 UNT Oral Capsule Vitamin D (Ergocalcife rol) 05/03/2020 12:00:00 AM EST completed [facility] ([facility]) varenicline 1 MG Oral Tablet [Chantix] Chantix 03/31/2020 12:00:00 AM EDT ORAL completed [facility] ([facility]) Blood Pressure Monitor Digital/Auto-Inflation 2019 12:00:00 AM EDT completed [facility] ([facility]) Insurance Providers Payer name Policy type / Coverage type Policy ID Covered republican ID Covered republican's relationship to hill Policy [place] Plan Information [facility] [id number] SP [id number] [facility] / [id number] Self [id number] SELF PAY COSMETIC [id number] SP [id number] [facility] [id number] SP [id number] SELF PAY ONLY [id number] SP [id number] ANSI-Commercial [id number] ANSI-Commercial [id number] ANSI-Commercial [id number] ANSI-Commercial [id number] ANSI-Commercial [id number] ANSI-Commercial [id number] ANSI-Commercial [id number] ANSI-Commercial [id number] ANSI-Commercial [id number] ANSI-Commercial [id number] ANSI-Commercial [id number] ANSI-Commercial [id number] ANSI-Commercial [id number] ANSI-Commercial [id number] ANSI-Commercial [id number] ANSI-Commercial [id number] ANSI-Commercial [id number] ANSI-Commercial [id number] ANSI-Commercial [id number] [facility] [id number] 2 [id number] [facility] O [id number] S [id number] [employer] [facility] Prime Health Maintenance Organization (HMO) [id number] Family Dependent [facility] [id number] HU2 [id number] N REGIONAL CLAIMS GONZALEZ -O/P [id number] 01 [id number] N REGIONAL CLAIMS GONZALEZ -O/P [id number] 01 [id number] [employer] [id number] Family Dependent [facility] [id number] [facility] [id number] Problems, Conditions, and Diagnoses Code Display Name Description Problem Type Effective Dates Data Source(s) 17387698 Hyperlipidemia Hyperlipidemia Problem 05/03/2020 12:00: 00 AM EST [facility] ([facility]) Surgeries/Procedures Procedure Description Date Indications Data Source(s) Excision Excessive Skin And Subcutaneous Tissue Abdomen 08/03/2020 12:00:00 AM EST [facility] ([facility], ) EXCISION EXCESSIVE SKIN & SUBQ TISSUE ABDOMEN 08/03/19 12:00:00 AM EST [facility] ([facility], ) EXC TUMOR SOFT TISSUE ABDL WALL SUBFASCIAL <5CM 2020 12:00:00 AM EST [facility] ([facility], ) Electrocardiogram Complete 07/22/2020 12:00:00 AM EST [facility] ([facility]) Pierce Fee 06/22/2020 12:00:00 AM EST M [facility] ([facility], ) Cosmetic Facility Fee 06/22/2020 12:00:00 AM EST [facility] ([facility], ) EXCISION EXCESSIVE SKIN & SUBQ TISSUE ABDOMEN 06/22/20 20 12:00:00 AM EST [facility] ([facility], ) Results ID Date Data Source [id number] 05/25/2021 03:00:00 PM EST [facility] Name Value Range Interpretation Code Description Data Jessica rce(s) Supporting Document(s) SARS-CoV-2 RNA Resp Ql JUAN R+probe NOT DETECTED [facility] This lab was ordered by [facility] and reported by [facility]. ID Date Data Source [id number] 08/03/2020 10:42:00 AM EST [facility] ([facility], ) Name Value Range Interpretation Code Description Data Jessica rce(s) Supporting Document(s) Surgical pathology study Laboratory test result [facility] ([facility], ) FINAL DIAGNOSIS Abdominal wall, extended panniculectomy: Pannus. 08/04/2020 - 1203 CLINICAL DIAGNOSIS Panniculitis 08/03/2020 - 145 GROSS DIAGNOSIS Received in formalin labeled "pannus, 1364 grams" are two portions of skin and subcutaneous tissue, approximately 22 x 15 x 5 cm each, as well as a few additional fragments (1364 grams per OR report). Sectioning does not reveal any gross lesion. Customer Support Coordinator in one. A few additional fragments of fat and focal skin are also noted in the container, 4 x 2 x 2 cm. - 08/03/2020 - 1451 Signed Natasha Vasquez MD 08/04/2020 1348 ID Date Data Source [id number] 07/29/2020 01:00:00 PM EST [facility] Name Value Range Interpretation Code Description Data Jessica rce(s) Supporting Document(s) SARS coronavirus 2 RNA Not Detected [facility] This lab was ordered by [facility] and reported by [facility]. ID Date Data Source [id number] 07/26/2020 08:16:00 AM EST [facility] ([facility]) Name Value Range Interpretation Code Description Data Jessica rce(s) Supporting Document(s) Hemoglobin A1c 5.5 % Normal (applies to non-numeric r esults) [facility] ([facility]) <content>REFERENCE RANGES:</content><br/ ><content></content>
<content><=5.6% NORMAL</content>
<content>5.7-6.4% SUGGESTS IMPAIRED GLUCOSE METABOLISM/PREDIABETIC</content>
<content>>= 6.5% ABNORMAL</content>
<content></content> Estimated Average Glucose 111 mg/dL 60-110 Above high normal [facility] ([facility]) ID Date Data Source [id number] 07/26/2020 08:16:00 AM EST [facility] ([facility]) Name Value Range Interpretation Code Description Data Jessica rce(s) Supporting Document(s) Creatinine For GFR 0.75 mg/dL 0.55-1.30 Normal (applies to non -numeric results) [facility] ([facility]) Blood Urea Nitrogen 12 mg/dL 7-18 Normal (applies to non-nume bob results) [facility] ([facility]) Glucose, Fasting 100 mg/dL 70-100 Normal (applies to non-numeric results) [facility] ([facility]) Potassium Serum 4.1 meq/L 3.5-5.1 Normal (applies to non-numeric results) [facility] ([facility]) Glomerular Filtration Rate Laboratory test result Normal (applies to non- numeric results) [facility] ([facility]) <content>Units are mL/min/1.73 m2</content>
<content></content>
<content>Chronic Kidney Disease Staging per NKF:</content>
<content></content>
<content>Stage I & II GFR >=60 Normal to Mildly Decreased</content>
<content>Stage III GFR 30- 59 Moderately Decreased</content>
<content>Stage IV GFR 15-29 Severely Decreased</content>
<content>Stage V GFR <15 Very Little GFR Left</content>
<content>ESRD GFR <15 on ORCHARD SPRAYER</content>
<content></content> Sodium Level 138 meq/L 136-145 Normal (applies to non-numeric res ults) [facility] ([facility]) Chloride Level 104 meq/L 98-107 Normal (applies to non-numeric r esults) [facility] ([facility]) Carbon Dioxide Level 28 meq/L 21-32 Normal (applies to non-num maria l results) [facility] ([facility]) Anion Gap 6 meq/L 8-16 Below low normal [facility] ( [facility]) Alt/SGPT 17 U/L 12-78 Normal (applies to non-numeric resul ts) [facility] ([facility]) Ast/Sgot 9 U/L 7-37 Normal (applies to non-numeric resul ts) [facility] ([facility]) Calcium Level 8.6 mg/dL 8.5-10.1 Normal (applies to non-numeric re sults) [facility] ([facility]) Total Protein 6.6 GM/DL 6.4-8.2 Normal (applies to non-numeric re sults) [facility] ([facility]) Alkaline Phosphatase 94 U/L 45-117 Normal (applies to non-num maria l results) [facility] ([facility]) Bilirubin,Total 0.6 mg/dL 0.2-1.0 Normal (applies to non-numeric results) [facility] ([facility]) Albumin 3.5 GM/DL 3.2-5.2 Normal (applies to non-numeric resul ts) [facility] ([facility]) Albumin/Globulin Ratio 1.1 1.2-2.2 Below low normal [facility] ID Date Data Source [id number] 07/26/2020 08:16:00 AM EST [facility] ([facility]) Name Value Range Interpretation Code Description Data Jessica rce(s) Supporting Document(s) White Blood Count 7.2 10 4.0-10.0 Normal (applies to non-numeri c results) [facility] ([facility]) Red Blood Count 5.67 10 4.00-5.40 Above high normal [facility] ([facility]) Hematocrit 44.5 % 36.0-47.0 Normal (applies to non-numeric resul ts) [facility] ([facility]) Hemoglobin 14.3 g/dL 12.0-15.5 Normal (applies to non-numeric resul ts) [facility] ([facility]) Mean Corpuscular Volume 78.5 fl 80.0-96.0 Below low normal [facility] Mean Corpuscular Hemoglobin 25.2 pg 27.0-33.0 Below low normal [facility] ([facility]) Mean Corpuscular HGB Conc 32.1 g/dL 32.0-36.5 Normal (applies to non-numeric results) [facility] ([facility]) Red Cell Distribution Width 14.4 % 11.5-14.5 Norm al (applies to non-numeric results) [facility] ([facility]) Platelet Count, Automated 222 10 150-450 Normal (applies to non-numeric results) [facility] ([facility]) Neutrophils % 61.8 % 36.0-66.0 Normal (applies to non-numeric re sults) [facility] ([facility]) [place] % 8.1 % 0.0-5.0 Above high normal [facility] ([facility]) Lymph % 26.4 % 24.0-44.0 Normal (applies to non-numeric resul ts) [facility] ([facility]) Baso % 1.1 % 0.0-1.0 Above high normal [facility] ([facility]) Immature Granulocyte % 0.1 % 0-3.0 Normal (applies to non-n umeric results) [facility] ([facility]) Eos % 2.5 % 0.0-3.0 Normal (applies to non-numeric resul ts) [facility] ([facility]) Nucleated Red Blood Cell % 0.0 % 0-0 Normal (applies to n on-numeric results) [facility] ([facility]) Neutrophils # 4.4 10 1.5-8.5 Normal (applies to non-numeric re sults) [facility] ([facility]) Lymph # 1.9 10 1.5-5.0 Normal (applies to non-numeric resul ts) [facility] ([facility]) Eos # 0.2 10 0.0-0.5 Normal (applies to non-numeric resul ts) [facility] ([facility]) [place] # 0.6 10 0.0-0.8 Normal (applies to non-numeric resul ts) [facility] ([facility]) Baso # 0.1 10 0.0-0.2 Normal (applies to non-numeric resul ts) [facility] ([facility]) ID Date Data Source [id number] 07/22/2020 10:07:00 AM EST [facility] ([facility]) Name Value Range Interpretation Code Description Data Jessica rce(s) Supporting Document(s) EKG Laboratory test result [facility] ([facility]) Procedure Social History No Information Vital Signs ID Date Data Source UNK Name Value Range Interpretation Code Description Data Source(s) Systolic blood pressure 132 mm[Hg] 132 mm[Hg] [facility] Diastolic blood pressure 86 mm[Hg] 86 mm[Hg] [facility] ([facility]) Respiratory rate 18 /min 18 /min [facility] ( [facility]) Body temperature 96.4 [degF] 96.4 [degF] [facility] ([facility]) Body height 66 [in_i] 66 [in_i] [facility] ([facility]) 5'6" [place] body weight 130 [lb_av] 130 [lb_av] [facility] ([facility]) Systolic blood pressure 118 mm[Hg] 118 mm[Hg] [facility] Diastolic blood pressure 78 mm[Hg] 78 mm[Hg] [facility] ([facility]) Heart rate 84 /min 84 /min [facility] ([facility]) Respiratory rate 14 /min 14 /min [facility] ( [facility]) Body temperature 97.8 [degF] 97.8 [degF] [facility] ([facility]) Body height 66 [in_i] 66 [in_i] [facility] ([facility]) 5'6" [place] body weight 130 [lb_av] 130 [lb_av] [facility] ([facility]) Body weight 184.25 [lb_av] 184.25 [lb_av] [facility] ([facility]) Body mass index (BMI) [Ratio] 29.7 kg/m2 29.7 k g/m2 [facility] ([facility]) Body height 66 [in_i] 66 [in_i] [facility] ([facility]) 5'6" Heart rate 96 /min 96 /min [facility] ([facility]) Body temperature 98.4 [degF] 98.4 [degF] [facility] ([facility]) Oxygen saturation in Arterial blood by Pulse oximetry 98 % 98 % [facility] ([facility]) Respiratory rate 18 /min 18 /min [facility] ( [facility]) [place] body weight 130 [lb_av] 130 [lb_av] [facility] ([facility]) Systolic blood pressure 124 mm[Hg] 124 mm[Hg] [facility] ([facility]) Diastolic blood pressure 74 mm[Hg] 74 mm[Hg] [facility]) Body surface area Derived from formula 1.93 m2 1.93 m2 [facility] ([facility], ) Respiratory rate 16 /min 16 /min [facility] ( [facility]) Body temperature 97.1 [degF] 97.1 [degF] [facility] ([facility]) Systolic blood pressure 144 mm[Hg] 144 mm[Hg] [facility] ([facility]) Diastolic blood pressure 78 mm[Hg] 78 mm[Hg] [facility] ([facility]) Heart rate 80 /min 80 /min [facility] ([facility]) Body height 66 [in_i] 66 [in_i] [facility] ([facility]) 5'6" Body weight 184.00 [lb_av] 184.00 [lb_av] [facility] ([facility]) Body mass index (BMI) [Ratio] 29.7 kg/m2 29.7 k g/m2 [facility] ([facility]) [place] body weight 130 [lb_av] 130 [lb_av] [facility] ([facility]) Body weight 83.462 kg 83.462 kg [facility] ([facility]) Systolic blood pressure 128 mm[Hg] 128 mm[Hg] [facility] [place] body weight 130 [lb_av] 130 [lb_av] [facility] ([facility]) Diastolic blood pressure 80 mm[Hg] 80 mm[Hg] [facility]) Body height 66 [in_i] 66 [in_i] [facility] ([facility]) 5'6" Body weight 176.50 [lb_av] 176.50 [lb_av] [facility] ([facility]) Body mass index (BMI) [Ratio] 28.5 kg/m2 28.5 k g/m2 [facility] Heart rate 84 /min 84 /min [facility] ([facility]) Respiratory rate 16 /min 16 /min [facility] ( [facility]) Body temperature 97.8 [degF] 97.8 [degF] [facility] ([facility]) Oxygen saturation in Arterial blood by Pulse oximetry 98 % 98 % [facility] ([facility])
== END 2021-06-05 17:52 | disposition left against medical advice (07) ==
LOC: M ED 15:18
DX: Z53.21 Procedure and treatment not carried out due to patient leaving prior to being seen by health care provider (principal)

== ENCOUNTER → 2021-07-20 | Outpatient (CLI) | payer OTHER | LOC: M LABSMTC 12:41 | PROVIDERS: ATTEND Pediatrics | DX: Z20.828 Contact with and (suspected) exposure to other viral communicable diseases (principal) | CPT/HCPCS: C9803; U0003 ==

== ENCOUNTER → 2021-08-29 | Outpatient (CLI) | payer OTHER | LOC: M RAD 12:58 | PROVIDERS: ATTEND Physician Assistant | DX: R91.1 Solitary pulmonary nodule (principal) ==

== ENCOUNTER 2021-10-31 21:41 | Emergency (ER) | payer OTHER ==
[~2021-10-31] VITALS: Ht 170.2 cm; Wt 83.2 kg
[2021-10-31 23:06] LABS: URINE PREG TEST NEGATIVE (NEGATIVE)
[2021-11-01] MEDS ORDERED: KETOROLAC 30 MG/ML 1ML VIAL IV ONE (00:35)
[2021-11-01 01:02] LABS: BASO # 0.1 10^3/uL (0.0-0.2); BASO % 1.1 % (0.0-1.0); EOS # 0.2 10^3/uL (0.0-0.5); HEMATOCRIT 40.5 % (36.0-47.0); HEMOGLOBIN 13.1 g/dl (12.0-15.5); LYMPH # 3.1 10^3/uL (1.5-5.0); LYMPH % 31.8 % (24.0-44.0); MEAN CORPUSCULAR HEMOGLOBIN 25.7 pg (27.0-33.0); MEAN CORPUSCULAR HGB CONC 32.3 g/dl (32.0-36.5); MEAN CORPUSCULAR VOLUME 79.6 fl (80.0-96.0); MONO # 0.7 10^3/uL (0.0-0.8); MONO % 7.6 % (2.0-8.0); NEUTROPHILS # 5.6 10^3/uL (1.5-8.5); NEUTROPHILS % 57.3 % (36.0-66.0); PLATELET COUNT, AUTOMATED 218 10^3/uL (150-450); RED BLOOD COUNT 5.09 10^6/uL (4.00-5.40); WHITE BLOOD COUNT 9.8 10^3/uL (4.0-10.0)
[2021-11-01 01:24] LABS: ALBUMIN 3.3 GM/DL (3.2-5.2); ALT/SGPT 13 U/L (12-78); BILIRUBIN,DIRECT < 0.1 MG/DL (0.0-0.2); BILIRUBIN,TOTAL 0.2 MG/DL (0.2-1.0); LIPASE 236 U/L (73-393); TOTAL PROTEIN 6.3 GM/DL (6.4-8.2)
[2021-11-01] MEDS ORDERED: KETO10TAB PO (02:07)
[2021-11-01 02:23] VITALS: BP 142/76
== END 2021-11-01 02:25 | disposition home or self-care (01) ==
LOC: M ED 21:41
DX: Z87.440 Personal history of urinary (tract) infections (principal); I10 Essential (primary) hypertension; E78.5 Hyperlipidemia, unspecified; F17.200 Nicotine dependence, unspecified, uncomplicated; S39.012A Strain of muscle, fascia and tendon of lower back, initial encounter; N85.2 Hypertrophy of uterus; Z79.899 Other long term (current) drug therapy
CPT/HCPCS: 74176; 80047; 80076; 81001; 83690; 84702; 84703; 85025; 87086; 96374; 99284; J1885

== ENCOUNTER → 2021-12-29 | Outpatient (CLI) | payer OTHER ==
[~2021-12-29] MED LIST changes: +KETO10TAB PO
== END ==
LOC: M WHC 08:21
PROVIDERS: ATTEND Physician Assistant
DX: N93.9 Abnormal uterine and vaginal bleeding, unspecified (principal); Z12.31 Encounter for screening mammogram for malignant neoplasm of breast; N85.00 Endometrial hyperplasia, unspecified

== ENCOUNTER → 2021-12-29 | Outpatient (CLI) | payer OTHER ==
[2021-12-29 13:47] LABS: BASO # 0.1 10^3/uL (0.0-0.2); BASO % 1.1 % (0.0-1.0); EOS # 0.2 10^3/uL (0.0-0.5); EOS % 2.2 % (0.0-3.0); HEMATOCRIT 46.5 % (36.0-47.0); HEMOGLOBIN 14.7 g/dl (12.0-15.5); LYMPH # 1.9 10^3/uL (1.5-5.0); LYMPH % 21.8 % (24.0-44.0); MEAN CORPUSCULAR HEMOGLOBIN 25.6 pg (27.0-33.0); MEAN CORPUSCULAR HGB CONC 31.6 g/dl (32.0-36.5); MEAN CORPUSCULAR VOLUME 80.9 fl (80.0-96.0); MONO # 0.7 10^3/uL (0.0-0.8); MONO % 7.7 % (2.0-8.0); NEUTROPHILS % 66.9 % (36.0-66.0); PLATELET COUNT, AUTOMATED 239 10^3/uL (150-450); RED BLOOD COUNT 5.75 10^6/uL (4.00-5.40); WHITE BLOOD COUNT 8.9 10^3/uL (4.0-10.0)
[2021-12-29 13:58] LABS: ALBUMIN 3.8 GM/DL (3.2-5.2); ALT/SGPT 14 U/L (12-78); BILIRUBIN,TOTAL 0.7 MG/DL (0.2-1.0); BLOOD UREA NITROGEN 7 MG/DL (7-18); CALCIUM LEVEL 8.8 MG/DL (8.5-10.1); CARBON DIOXIDE LEVEL 27 MEQ/L (21-32); CHLORIDE LEVEL 105 MEQ/L (98-107); CHOLESTEROL LEVEL 251 MG/DL (<200); CHOLESTEROL RISK RATIO 5.456 (<5); CREATININE FOR GFR 0.74 MG/DL (0.55-1.30); FERRITIN 38 NG/ML (8-252); GLOMERULAR FILTRATION RATE > 60.0 (>58); GLUCOSE, FASTING 98 MG/DL (70-100); HDL CHOLESTEROL 46 MG/DL (>40); IRON (FE) 63 UG/DL (50-170); LDL CHOLESTEROL 178 MG/DL (<100); NON-HDL-C 205 MG/DL; PERCENT SATURATION 20.9 % (13.2-45.0); POTASSIUM SERUM 4.3 MEQ/L (3.5-5.1); SODIUM LEVEL 138 MEQ/L (136-145); TOTAL IRON BINDING CAPACITY 301 UG/DL (250-450); TOTAL PROTEIN 6.9 GM/DL (6.4-8.2); TRIGLYCERIDES LEVEL 133 MG/DL (<150)
[2021-12-29 14:12] LABS: HEMOGLOBIN A1c 5.5 %
== END ==
LOC: M PLALAB 10:13
PROVIDERS: ATTEND Physician Assistant
DX: R73.01 Impaired fasting glucose (principal); E78.5 Hyperlipidemia, unspecified; N93.9 Abnormal uterine and vaginal bleeding, unspecified

== ENCOUNTER 2022-03-30 08:20 | Emergency (ER) | payer OTHER ==
[~2022-03-30] VITALS: Ht 165.1 cm; Wt 82.9 kg
[2022-03-30] MEDS ORDERED: ROSU10TA6 (08:28)
[2022-03-30] MEDS ORDERED: AMPH1CAP4 (08:28)
[2022-03-30] MEDS ORDERED: IRBE150T7 (08:28)
[2022-03-30 08:55] LABS: BASO # 0.1 10^3/uL (0.0-0.2); BASO % 1.1 % (0.0-1.0); EOS # 0.1 10^3/uL (0.0-0.5); EOS % 1.7 % (0.0-3.0); HEMATOCRIT 43.7 % (36.0-47.0); HEMOGLOBIN 13.8 g/dl (12.0-15.5); LYMPH # 1.5 10^3/uL (1.5-5.0); LYMPH % 23.7 % (24.0-44.0); MEAN CORPUSCULAR HEMOGLOBIN 25.1 pg (27.0-33.0); MEAN CORPUSCULAR HGB CONC 31.6 g/dl (32.0-36.5); MEAN CORPUSCULAR VOLUME 79.6 fl (80.0-96.0); MONO # 0.5 10^3/uL (0.0-0.8); MONO % 7.9 % (2.0-8.0); NEUTROPHILS # 4.2 10^3/uL (1.5-8.5); NEUTROPHILS % 65.3 % (36.0-66.0); PLATELET COUNT, AUTOMATED 218 10^3/uL (150-450); RED BLOOD COUNT 5.49 10^6/uL (4.00-5.40); WHITE BLOOD COUNT 6.4 10^3/uL (4.0-10.0)
[2022-03-30 09:34] LABS: CPK CREATINE PHOSPHOKINASE 64 U/L (26-192)
[2022-03-30 09:39] LABS: BLOOD UREA NITROGEN 9 MG/DL (7-18); CALCIUM LEVEL 8.3 MG/DL (8.5-10.1); CARBON DIOXIDE LEVEL 26 MEQ/L (21-32); CHLORIDE LEVEL 106 MEQ/L (98-107); CREATININE FOR GFR 0.92 MG/DL (0.55-1.30); GLOMERULAR FILTRATION RATE > 60.0 (>58); GLUCOSE, FASTING 124 MG/DL (70-100); SODIUM LEVEL 136 MEQ/L (136-145)
[2022-03-30 09:59] LABS: CK-MB VALUE MASS < 1.0 NG/ML (<3.6); MB/CK RELATIVE INDEX 1.56 (< OR =4)
[2022-03-30 10:50] LABS: CK-MB VALUE MASS < 1.0 NG/ML (<3.6); CPK CREATINE PHOSPHOKINASE 59 U/L (26-192); MB/CK RELATIVE INDEX 1.69 (< OR =4)
[2022-03-30 10:53] LABS: ALBUMIN 3.2 GM/DL (3.2-5.2); ALT/SGPT 17 U/L (12-78); BILIRUBIN,DIRECT < 0.1 MG/DL (0.0-0.2); BILIRUBIN,TOTAL 0.4 MG/DL (0.2-1.0); LIPASE 204 U/L (73-393); TOTAL PROTEIN 6.2 GM/DL (6.4-8.2)
[2022-03-30 12:27] LABS: CK-MB VALUE MASS 1.2 NG/ML (<3.6); MB/CK RELATIVE INDEX 1.88 (< OR =4)
[2022-03-30] MEDS ORDERED: ASPIRIN 81 MG CHEW TABLET PO ONE (12:45)
[2022-03-30] MEDS ORDERED: ISOVUE-370 76% 100ML VIAL As Ordered ONE (12:46)
[2022-03-30 13:52] LABS: INR 0.88; PROTHROMBIN TIME 12.3 SECONDS (12.7-14.5)
[2022-03-30 13:53] LABS: PARTIAL THROMBOPLASTIN TIME 37.1 SECONDS (25.9-37.0)
[2022-03-30] MEDS ORDERED: HEPARIN DRIP 25,000 UNITS in IV 1 EA IV SCH ×2 (14:10→14:20)
[2022-03-30] MEDS ORDERED: HEPARIN SOD (PORCINE) 5000UNITS/ML 1ML VIAL/SYRINGE IV ONE ×2 (14:10→14:20)
[2022-03-30 19:52] VITALS: BP 139/71
== END 2022-03-30 19:57 | disposition short-term general hospital (02) ==
LOC: M ED 08:20
DX: I21.4 Non-ST elevation (NSTEMI) myocardial infarction (principal); I10 Essential (primary) hypertension; F17.200 Nicotine dependence, unspecified, uncomplicated; Z82.49 Family history of ischemic heart disease and other diseases of the circulatory system
CPT/HCPCS: 71045; 71275; 80048; 80076; 82550; 82553; 83690; 83735; 84484; 85025; 85610; 85730; 87635; 93005; 96374; 99285; J1644; Q9967

== ENCOUNTER 2022-04-13 17:11 | Emergency (ER) | payer OTHER ==
[~2022-04-13] VITALS: Ht 167.6 cm; Wt 82.9 kg
[~2022-04-13 17:11] MED LIST changes: +AMPH1CAP4; +IRBE150T7; +ROSU10TA6
[2022-04-13] MEDS ORDERED: POTA1TAB14 (17:22)
[2022-04-13] MEDS ORDERED: METH-1164 (17:22)
[2022-04-13] MEDS ORDERED: FURO20TA2 (17:22)
[2022-04-13] MEDS ORDERED: ATOR80TA59 (17:22)
[2022-04-13] MEDS ORDERED: FAMO20TA5 (17:22)
[2022-04-13] MEDS ORDERED: ASPI81CH33 PO (17:22)
[2022-04-13] MEDS ORDERED: METO1TAB32 (17:22)
[2022-04-13] MEDS ORDERED: OXYC-517 (17:22)
[2022-04-13] MEDS ORDERED: diazePAM 10MG/2ML SYRINGE (J3360 PER 5MG) IV ONE (17:40)
[2022-04-13] MEDS ORDERED: LIDOCAINE 5% (LIDODERM) PATCH TD ONE (17:40)
[2022-04-13 17:44] LABS: BASO # 0.1 10^3/uL (0.0-0.2); BASO % 0.9 % (0.0-1.0); EOS # 0.3 10^3/uL (0.0-0.5); EOS % 2.4 % (0.0-3.0); HEMATOCRIT 34.5 % (36.0-47.0); HEMOGLOBIN 11.1 g/dl (12.0-15.5); LYMPH # 2.2 10^3/uL (1.5-5.0); LYMPH % 19.2 % (24.0-44.0); MEAN CORPUSCULAR HEMOGLOBIN 25.8 pg (27.0-33.0); MEAN CORPUSCULAR HGB CONC 32.2 g/dl (32.0-36.5); MONO # 0.8 10^3/uL (0.0-0.8); MONO % 7.2 % (2.0-8.0); NEUTROPHILS # 7.9 10^3/uL (1.5-8.5); NEUTROPHILS % 68.7 % (36.0-66.0); PLATELET COUNT, AUTOMATED 468 10^3/uL (150-450); RED BLOOD COUNT 4.31 10^6/uL (4.00-5.40); WHITE BLOOD COUNT 11.5 10^3/uL (4.0-10.0)
[2022-04-13 17:52] LABS: INR 0.89; PROTHROMBIN TIME 12.2 SECONDS (12.5-14.5)
[2022-04-13 18:11] LABS: CK-MB VALUE MASS < 1.0 NG/ML (<3.6); CPK CREATINE PHOSPHOKINASE 42 U/L (26-192); MB/CK RELATIVE INDEX 2.38 (< OR =4)
[2022-04-13 19:59] LABS: ALBUMIN 3.3 GM/DL (3.2-5.2); ALT/SGPT 30 U/L (12-78); BILIRUBIN,DIRECT 0.2 MG/DL (0.0-0.2); BILIRUBIN,TOTAL 0.3 MG/DL (0.2-1.0); BLOOD UREA NITROGEN 14 MG/DL (7-18); CALCIUM LEVEL 8.4 MG/DL (8.5-10.1); CARBON DIOXIDE LEVEL 25 MEQ/L (21-32); CHLORIDE LEVEL 102 MEQ/L (98-107); CREATININE FOR GFR 0.83 MG/DL (0.55-1.30); GLOMERULAR FILTRATION RATE > 60.0 (>58); GLUCOSE, FASTING 129 MG/DL (70-100); LIPASE 1060 U/L (73-393); NT-PRO BNP 1068 PG/ML (<125); POTASSIUM SERUM 4.4 MEQ/L (3.5-5.1); SODIUM LEVEL 135 MEQ/L (136-145); TOTAL PROTEIN 7.2 GM/DL (6.4-8.2)
[2022-04-13] MEDS: MORPHINE 4 MG/ML 1ML VIAL/SYRINGE IV PRN ×2 (20:14→21:01)
[2022-04-13] MEDS ORDERED: ISOVUE-370 76% 100ML VIAL As Ordered ONE (20:16)
[2022-04-13 20:39] LABS: CK-MB VALUE MASS < 1.0 NG/ML (<3.6); CPK CREATINE PHOSPHOKINASE 27 U/L (26-192)
[2022-04-13 21:00] VITALS: BP 145/89
[2022-04-13] MEDS ORDERED: BUPIVACAINE HCL 0.25% 10ML VIAL SC ONE (22:00)
[2022-04-13] MEDS ORDERED: SOMA250T PO (22:38)
[2022-04-13] MEDS ORDERED: carisoprodoL 350 MG TAB PO ONE (22:40)
[2022-04-14] MEDS ORDERED: SOMA250T PO (11:57)
== END 2022-04-13 23:17 | disposition home or self-care (01) ==
LOC: M ED 17:11
DX: M62.830 Muscle spasm of back (principal); I25.2 Old myocardial infarction; I10 Essential (primary) hypertension; E78.5 Hyperlipidemia, unspecified; Z95.1 Presence of aortocoronary bypass graft; Z79.82 Long term (current) use of aspirin; Z79.899 Other long term (current) drug therapy
CPT/HCPCS: 20552; 71045; 71275; 74177; 80048; 80076; 82550; 82553; 83690; 83880; 84443; 84484; 85025; 85610; 93005; 93041; 94760; 96374; 96375; 96376; 99285; J2270; J3360; Q9967

== ENCOUNTER → 2022-04-18 | Outpatient (CLI) | payer OTHER ==
[~2022-04-18] MED LIST changes: +ASPI81CH33 PO; +ATOR80TA59; +FAMO20TA5; +FURO20TA2; +METH-1164; +METO1TAB32; +OXYC-517; +POTA1TAB14; +SOMA250T PO
[2022-04-18 15:44] LABS: BASO # 0.1 10^3/uL (0.0-0.2); EOS # 0.4 10^3/uL (0.0-0.5); EOS % 3.6 % (0.0-3.0); HEMATOCRIT 36.1 % (36.0-47.0); LYMPH # 2.3 10^3/uL (1.5-5.0); LYMPH % 23.8 % (24.0-44.0); MEAN CORPUSCULAR HEMOGLOBIN 24.9 pg (27.0-33.0); MEAN CORPUSCULAR HGB CONC 30.5 g/dl (32.0-36.5); MEAN CORPUSCULAR VOLUME 81.7 fl (80.0-96.0); MONO # 0.8 10^3/uL (0.0-0.8); MONO % 8.1 % (2.0-8.0); NEUTROPHILS # 6.1 10^3/uL (1.5-8.5); NEUTROPHILS % 63.1 % (36.0-66.0); PLATELET COUNT, AUTOMATED 529 10^3/uL (150-450); RED BLOOD COUNT 4.42 10^6/uL (4.00-5.40); WHITE BLOOD COUNT 9.6 10^3/uL (4.0-10.0)
[2022-04-18 16:11] LABS: INR 0.91; PROTHROMBIN TIME 12.4 SECONDS (12.5-14.5)
[2022-04-18 16:12] LABS: PARTIAL THROMBOPLASTIN TIME 37.4 SECONDS (24.8-34.2)
[2022-04-18 17:06] LABS: ALBUMIN 3.2 GM/DL (3.2-5.2); ALT/SGPT 24 U/L (12-78); BILIRUBIN,DIRECT < 0.1 MG/DL (0.0-0.2); BILIRUBIN,TOTAL 0.3 MG/DL (0.2-1.0); BLOOD UREA NITROGEN 12 MG/DL (7-18); CALCIUM LEVEL 9.4 MG/DL (8.5-10.1); CARBON DIOXIDE LEVEL 27 MEQ/L (21-32); CHLORIDE LEVEL 104 MEQ/L (98-107); CREATININE FOR GFR 0.76 MG/DL (0.55-1.30); GLOMERULAR FILTRATION RATE > 60.0 (>58); GLUCOSE, FASTING 105 MG/DL (70-100); LIPASE 529 U/L (73-393); POTASSIUM SERUM 4.3 MEQ/L (3.5-5.1); SODIUM LEVEL 137 MEQ/L (136-145); TOTAL PROTEIN 6.8 GM/DL (6.4-8.2)
== END ==
LOC: M PLALAB 12:27
PROVIDERS: ATTEND Physician Assistant
DX: R74.8 Abnormal levels of other serum enzymes (principal)

== ENCOUNTER → 2022-04-27 | Outpatient (CLI) | payer OTHER ==
[2022-04-27 15:34] LABS: ALBUMIN 3.5 GM/DL (3.2-5.2); ALT/SGPT 27 U/L (12-78); BILIRUBIN,DIRECT 0.1 MG/DL (0.0-0.2); BILIRUBIN,TOTAL 0.4 MG/DL (0.2-1.0); BLOOD UREA NITROGEN 9 MG/DL (7-18); CALCIUM LEVEL 8.4 MG/DL (8.5-10.1); CARBON DIOXIDE LEVEL 24 MEQ/L (21-32); CHLORIDE LEVEL 104 MEQ/L (98-107); CREATININE FOR GFR 0.79 MG/DL (0.55-1.30); GLOMERULAR FILTRATION RATE > 60.0 (>58); GLUCOSE, FASTING 95 MG/DL (70-100); LIPASE 350 U/L (73-393); POTASSIUM SERUM 4.3 MEQ/L (3.5-5.1); SODIUM LEVEL 138 MEQ/L (136-145); TOTAL PROTEIN 6.9 GM/DL (6.4-8.2)
== END ==
LOC: M PLALAB 10:03
PROVIDERS: ATTEND Physician Assistant
DX: R74.8 Abnormal levels of other serum enzymes (principal)

== ENCOUNTER → 2022-10-02 | Outpatient (CLI) | payer OTHER | LOC: M PLAIMG 10:09 | PROVIDERS: ATTEND Physician Assistant | DX: R91.1 Solitary pulmonary nodule (principal); Z87.891 Personal history of nicotine dependence ==

== ENCOUNTER → 2023-04-30 | Outpatient (CLI) | payer OTHER ==
[~2023-04-30] MED LIST changes: +POTA-298; -POTA1TAB14
[2023-04-30 12:08] LABS: BASO # 0.1 10^3/uL (0.0-0.2); EOS # 0.1 10^3/uL (0.0-0.5); EOS % 1.5 % (0.0-3.0); HEMOGLOBIN 15.2 g/dl (12.0-15.5); LYMPH # 2.1 10^3/uL (1.5-5.0); LYMPH % 26.3 % (24.0-44.0); MEAN CORPUSCULAR HGB CONC 32.1 g/dl (32.0-36.5); MONO # 0.8 10^3/uL (0.0-0.8); MONO % 9.4 % (2.0-8.0); NEUTROPHILS # 4.9 10^3/uL (1.5-8.5); NEUTROPHILS % 61.5 % (36.0-66.0); PLATELET COUNT, AUTOMATED 208 10^3/uL (150-450)
[2023-04-30 12:16] LABS: HEMATOCRIT 47.4 % (36.0-47.0); RED BLOOD COUNT 6.08 10^6/uL (4.00-5.40)
[2023-04-30 12:33] LABS: ALBUMIN 3.8 G/DL (3.2-5.2); ALKALINE PHOSPHATASE 95 U/L (46-116); ALT/SGPT 19 U/L (7.0-40); AST/SGOT 20 U/L (<34); BILIRUBIN,TOTAL 0.9 MG/DL (0.3-1.2); BLOOD UREA NITROGEN 14 MG/DL (9-23); CALCIUM LEVEL 8.8 MG/DL (8.5-10.1); CARBON DIOXIDE LEVEL 28 MMOL/L (20-31); CHLORIDE LEVEL 102 MMOL/L (98-107); CHOLESTEROL LEVEL 104 MG/DL (<200); CHOLESTEROL RISK RATIO 2.31 (<5); CREATININE FOR GFR 0.89 MG/DL (0.55-1.30); GLOMERULAR FILTRATION RATE > 60.0 (>58); GLUCOSE, FASTING 99 MG/DL (60-100); LDL CHOLESTEROL 34.8 MG/DL (<100); POTASSIUM SERUM 4.4 MMOL/L (3.5-5.1); SODIUM LEVEL 139 MMOL/L (136-145); TOTAL PROTEIN 6.8 G/DL (5.7-8.2); TRIGLYCERIDES LEVEL 121 MG/DL (<150)
[2023-04-30 12:34] LABS: FREE T4 0.92 NG/DL (0.89-1.76); THYROID STIMULATING HORMONE 2.434 uIU/ML (0.55-4.78)
== END ==
LOC: M PLALAB 07:49
PROVIDERS: ATTEND Physician Assistant
DX: I25.10 Atherosclerotic heart disease of native coronary artery without angina pectoris (principal); I10 Essential (primary) hypertension; R73.01 Impaired fasting glucose; Z12.31 Encounter for screening mammogram for malignant neoplasm of breast; R92.333 Mammographic heterogeneous density, bilateral breasts

== ENCOUNTER → 2023-04-30 | Outpatient (CLI) | payer OTHER | LOC: M WHC 07:45 | PROVIDERS: ATTEND Physician Assistant | DX: Z12.31 Encounter for screening mammogram for malignant neoplasm of breast (principal); R92.333 Mammographic heterogeneous density, bilateral breasts ==

== ENCOUNTER → 2023-05-30 | Day surgery (SDC) | payer OTHER ==
[~2023-05-30] VITALS: Ht 170.2 cm; Wt 87.5 kg
[~2023-05-30] MED LIST changes: +AMPHET/DEXTR PO; +EZET10TA21 PO; -FAMO20TA5; +FAMO20TA5 PO; +LIDOCAINE 2% 100MG/5ML SDV (FOR ANES.) As Ordered ONE; -METO1TAB32; +METO1TAB32 PO; +NS 1,000 ML IV ONE; +ROSU40TA4 PO; +VARE1TAB2 PO; +propofoL 200 MG/20 ML VIAL As Ordered ONE
[2023-05-30 10:04] VITALS: BP 180/91; O2SAT 97
== END | disposition home or self-care (01) ==
LOC: M OPP 08:07
PROVIDERS: ATTEND Surgery
DX: Z12.11 Encounter for screening for malignant neoplasm of colon (principal); K64.0 First degree hemorrhoids; G47.9 Sleep disorder, unspecified; Z86.74 Personal history of sudden cardiac arrest; Z79.02 Long term (current) use of antithrombotics/antiplatelets; Z79.82 Long term (current) use of aspirin; Z79.899 Other long term (current) drug therapy

== ENCOUNTER → 2023-08-09 | Outpatient (CLI) | payer OTHER ==
[~2023-08-09] MED LIST changes: +IRBE150T27; -IRBE150T7; -LIDOCAINE 2% 100MG/5ML SDV (FOR ANES.) As Ordered ONE; -NS 1,000 ML IV ONE; -propofoL 200 MG/20 ML VIAL As Ordered ONE
[2023-08-09 11:05] LABS: BASO # 0.1 10^3/uL (0.0-0.2); BASO % 0.9 % (0.0-1.0); EOS # 0.2 10^3/uL (0.0-0.5); EOS % 2.5 % (0.0-3.0); HEMATOCRIT 47.5 % (36.0-47.0); HEMOGLOBIN 15.3 g/dl (12.0-15.5); LYMPH % 24.5 % (24.0-44.0); MEAN CORPUSCULAR HEMOGLOBIN 25.5 pg (27.0-33.0); MEAN CORPUSCULAR HGB CONC 32.2 g/dl (32.0-36.5); MEAN CORPUSCULAR VOLUME 79.3 fl (80.0-96.0); MONO # 0.7 10^3/uL (0.0-0.8); MONO % 8.6 % (2.0-8.0); NEUTROPHILS # 5.1 10^3/uL (1.5-8.5); NEUTROPHILS % 63.2 % (36.0-66.0); PLATELET COUNT, AUTOMATED 207 10^3/uL (150-450); RED BLOOD COUNT 5.99 10^6/uL (4.00-5.40)
[2023-08-09 11:41] LABS: THYROID STIMULATING HORMONE 2.197 uIU/ML (0.55-4.78)
[2023-08-09 11:42] LABS: ALBUMIN 3.6 G/DL (3.2-5.2); ALKALINE PHOSPHATASE 94 U/L (46-116); ALT/SGPT 24 U/L (7.0-40); AST/SGOT 18 U/L (<34); BILIRUBIN,TOTAL 0.8 MG/DL (0.3-1.2); BLOOD UREA NITROGEN 11 MG/DL (9-23); CALCIUM LEVEL 9.1 MG/DL (8.5-10.1); CARBON DIOXIDE LEVEL 30 MMOL/L (20-31); CHLORIDE LEVEL 106 MMOL/L (98-107); CHOLESTEROL LEVEL 92 MG/DL (<200); CHOLESTEROL RISK RATIO 2.45 (<5); GLOMERULAR FILTRATION RATE > 60.0 (>58); GLUCOSE, FASTING 112 MG/DL (60-100); HDL CHOLESTEROL 37.4 MG/DL (>40); LDL CHOLESTEROL 31.2 MG/DL (<100); NON-HDL-C 54.6 MG/DL; POTASSIUM SERUM 4.3 MMOL/L (3.5-5.1); SODIUM LEVEL 140 MMOL/L (136-145); TOTAL PROTEIN 6.5 G/DL (5.7-8.2); TRIGLYCERIDES LEVEL 117 MG/DL (<150)
== END ==
LOC: M PLALAB 07:34
PROVIDERS: ATTEND Physician Assistant
DX: I25.10 Atherosclerotic heart disease of native coronary artery without angina pectoris (principal); R73.01 Impaired fasting glucose; I10 Essential (primary) hypertension

== ENCOUNTER → 2023-11-23 | Outpatient (REF) | payer OTHER ==
[~2023-11-23] MED LIST changes: -ROSU10TA6; +ROSU10TA61; -ROSU40TA4 PO; +ROSU40TA63 PO
== END ==
LOC: M LAB REF 13:24
PROVIDERS: ATTEND Physician Assistant
DX: N39.0 Urinary tract infection, site not specified (principal)

== ENCOUNTER → 2023-11-27 | Outpatient (CLI) | payer OTHER ==
[2023-11-27 13:19] LABS: ALBUMIN 3.5 G/DL (3.2-5.2); ALKALINE PHOSPHATASE 80 U/L (46-116); ALT/SGPT 15 U/L (7.0-40); AST/SGOT 10 U/L (<34); BLOOD UREA NITROGEN 10 MG/DL (9-23); CALCIUM LEVEL 8.9 MG/DL (8.5-10.1); CARBON DIOXIDE LEVEL 29 MMOL/L (20-31); CHLORIDE LEVEL 108 MMOL/L (98-107); CREATININE FOR GFR 0.92 MG/DL (0.55-1.30); GLOMERULAR FILTRATION RATE > 60.0 (>58); GLUCOSE, FASTING 95 MG/DL (60-100); POTASSIUM SERUM 4.6 MMOL/L (3.5-5.1); SODIUM LEVEL 140 MMOL/L (136-145); TOTAL PROTEIN 6.2 G/DL (5.7-8.2)
[2023-11-27 13:58] LABS: HEMOGLOBIN A1c 5.6 % (4.0-6.0)
== END ==
LOC: M PLALAB 09:28
PROVIDERS: ATTEND Physician Assistant
DX: R73.01 Impaired fasting glucose (principal)

== ENCOUNTER → 2024-03-14 | Outpatient (CLI) | payer OTHER ==
[~2024-03-14] MED LIST changes: -ROSU40TA63 PO; +ROSU40TA81 PO
[2024-03-14 11:18] LABS: BASO # 0.1 10^3/uL (0.0-0.2); BASO % 1.1 % (0.0-1.0); EOS # 0.2 10^3/uL (0.0-0.5); EOS % 2.9 % (0.0-3.0); HEMATOCRIT 45.5 % (36.0-47.0); HEMOGLOBIN 14.8 g/dl (12.0-15.5); LYMPH # 2.7 10^3/uL (1.5-5.0); LYMPH % 32.3 % (24.0-44.0); MEAN CORPUSCULAR HEMOGLOBIN 25.5 pg (27.0-33.0); MEAN CORPUSCULAR HGB CONC 32.5 g/dl (32.0-36.5); MEAN CORPUSCULAR VOLUME 78.4 fl (80.0-96.0); MONO # 0.7 10^3/uL (0.0-0.8); MONO % 7.9 % (2.0-8.0); NEUTROPHILS # 4.6 10^3/uL (1.5-8.5); NEUTROPHILS % 55.6 % (36.0-66.0); PLATELET COUNT, AUTOMATED 230 10^3/uL (150-450); WHITE BLOOD COUNT 8.2 10^3/uL (4.0-10.0)
[2024-03-14 11:24] LABS: HEMOGLOBIN A1c 5.2 % (4.0-6.0)
[2024-03-14 11:38] LABS: ALBUMIN 3.6 G/DL (3.2-5.2); ALKALINE PHOSPHATASE 75 U/L (46-116); ALT/SGPT 15 U/L (7.0-40); AST/SGOT < 8 U/L (<34); BILIRUBIN,TOTAL 1.1 MG/DL (0.3-1.2); BLOOD UREA NITROGEN 7 MG/DL (9-23); CALCIUM LEVEL 8.8 MG/DL (8.5-10.1); CARBON DIOXIDE LEVEL 28 MMOL/L (20-31); CHLORIDE LEVEL 106 MMOL/L (98-107); CHOLESTEROL LEVEL 150 MG/DL (<200); CREATININE FOR GFR 0.87 MG/DL (0.55-1.30); GLOMERULAR FILTRATION RATE > 60.0 (>51); GLUCOSE, FASTING 96 MG/DL (60-100); POTASSIUM SERUM 3.9 MMOL/L (3.5-5.1); SODIUM LEVEL 138 MMOL/L (136-145); TOTAL PROTEIN 6.4 G/DL (5.7-8.2); TRIGLYCERIDES LEVEL 150 MG/DL (<150)
== END ==
LOC: M PLALAB 07:29
PROVIDERS: ATTEND Physician Assistant
DX: E78.5 Hyperlipidemia, unspecified (principal); R73.01 Impaired fasting glucose

== ENCOUNTER → 2024-05-13 | Outpatient (CLI) | payer OTHER | LOC: M WHC 08:39 | PROVIDERS: ATTEND Physician Assistant | DX: Z12.31 Encounter for screening mammogram for malignant neoplasm of breast (principal); R92.333 Mammographic heterogeneous density, bilateral breasts ==